=== PATIENT | female | born 1955 | race African-American/Black ===

== ENCOUNTER → 2016-02-17 | Outpatient (CLI) | payer MEDICARE, OTHER ==
[~2016-02-17] VITALS: Ht 160 cm; Wt 134.7 kg
[~2016-02-17] MED LIST: AMIO200T2 PO; AMIT50TA PO; ASPI81TA9 PO; ATOR40TA59 PO; CALC200T3 PO; CEFAZOLIN 1GM IVPB FOR OMNI 50 ML IV ONE; CHOL2000 PO; CINA30TA PO; FENTANYL PF 250 MCG/5 ML VIAL. IV ONE; FENTANYL PF 250 MCG/5 ML VIAL. ONE; FERR-26 PO; FERR325T31 PO; FOLI0.8T3 PO; HEPARIN for IV BOLUS 10,000 UNIT/10 ML VIAL. ONE; INSU100I17 SQ; INSU100I18 SQ; INSU100I27 SQ; IODIXANOL 320 MG/ML 100 ML VIAL. IART ONE; IODIXANOL 320 MG/ML 100 ML VIAL. ONE; IOHEXOL 300 MG/ML 100ML VIAL. ONE; LANT1000 PO; LEVO75TA PO; LEVO75TA5 PO; LIDOCAINE 1%/EPI 1:100,000 20 ML VIAL. IJ ONE; LIDOCAINE 1%/EPI 1:100,000 20 ML VIAL. ONE; LUBI8CAP3 PO; METAMUCIL425 GM PO; MIDAZOLAM HCL/PF 5 MG/5 ML VIAL IV ONE; MIDAZOLAM HCL/PF 5 MG/5 ML VIAL ONE; MUPI1OIN NS; SENN-6 PO; SENN1TAB19 PO; SEVE800T9 PO; TRAM50TA PO; WARF10TA PO
[2016-02-17 07:13] LABS: BASO # 0.1 x10^3/uL (0.0-0.2); BASO % 1 % (0-3); EOS % 4 % (0-3); HEMATOCRIT 34.7 % (36.0-47.0); HEMOGLOBIN 10.9 g/dL (12.0-15.5); LYMPH # 0.7 x10^3/uL (1.0-4.8); LYMPH % 10 % (24-48); MEAN CORPUSCULAR HEMOGLOBIN 30 pg (25-35); MEAN CORPUSCULAR HGB CONC 32 g/dL (31-37); MEAN CORPUSCULAR VOLUME 96 fL (79-100); MONO % 8 % (0-9); NEUT % 77 % (31-73); PLATELET COUNT 183 x10^3/uL (140-400); RED BLOOD COUNT 3.63 x10^6/uL (3.50-5.40); RED CELL DISTRIBUTION WIDTH 15.1 % (11.5-14.5); WHITE BLOOD COUNT 6.8 x10^3/uL (4.0-11.0)
[2016-02-17 07:17] VITALS: BP 123/49
[2016-02-17 07:19] LABS: PROTHROMBIN TIME PATIENT 12.6 SEC (11.7-14.0)
[2016-02-17 07:59] LABS: % BASOS 1 % (0-3); % EOS 4 % (0-5); PLT ESTIMATE ADEQUATE (ADEQUATE)
[2016-02-17 09:53] VITALS: BP 130/58
--- NOTE | 2016-02-17 10:10 | PDOC ---
MODERATE SEDATION ASSESSMENT RISKS/ALTERNATIVES Risks/Alternatives Risks and alternatives of this type of sedation and procedure discussed with: RISK/ALTERNATIVES: Patient H & P ON CHART H & P H & P on chart and reviewed for co-morbid conditions and appropriate labs. H&P ON CHART: Yes STATUS PREG STATUS ASSESSED: Yes MEDS/ALLERGIES REVIEWED Meds/Allergies Reviewed Medications and Allergies including time and route of recently administered narcotics and sedatives. MEDS/ALLERGIES REVIEWED: Yes ASA RATING ASA RATING: III AIRWAY ASSESSMENT Airway Assessment Airway patency, oral function limitations, presence of caps, crowns, dentures, partials, and ability to extend neck assessed. AIRWAY ASSESSMENT: Yes MALLAMPATI SCORE MALLAMPATI SCORE: III PRE-SEDATION ASSESSMENT PRE-SEDATION ASSESSMENT: Yes DAKOTA YOUSIF MD Feb 17, 2016 10:10
[2016-02-17 10:15] VITALS: BP 149/46
--- NOTE | 2016-02-17 10:19 | PDOC1 ---
History and Physical Date of Procedure Date of Admission 02/17/16 Procedure Procedure Fluoro guided tunneled HDC replacement--same left IJ access. Lt arm AVF gram +/- intervention. Indication Indication ESRD. Nonfunctioning left IJ tunneled HDC. Inability to access left arm AVF. Past Medical History Past Medical History See Nursing Pre Procedure PMH Past Surgical History Past Surgical History See Nursing Pre procedure PSH Current Medications Current Medications Current Medications Heparin Sodium (Porcine) 10,000 unit STK-MED ONCE .ROUTE ; Start 02/17/16 at 08: 02; Stop 02/17/16 at 08:03; Status DC Iohexol (Omnipaque 300 Mg/ml) 100 ml STK-MED ONCE .ROUTE ; Start 02/17/16 at 08: 02; Stop 02/17/16 at 08:03; Status DC Lidocaine/ Epinephrine 20 ml 20 ml STK-MED ONCE .ROUTE ; Start 02/17/16 at 08:03 ; Stop 02/17/16 at 08:04; Status DC Heparin Sodium/ Sodium Chloride 500 ml @ As Directed STK-MED ONCE .ROUTE ; Start 02/17/16 at 08:03; Stop 02/17/16 at 08:04; Status DC Iodixanol (Visipaque 320) 100 ml STK-MED ONCE .ROUTE ; Start 02/17/16 at 08:15; Stop 02/17/16 at 08:16; Status DC Heparin Sodium (Porcine) 10,000 unit STK-MED ONCE .ROUTE ; Start 02/17/16 at 08: 16; Stop 02/17/16 at 08:17; Status DC Midazolam HCl (Versed) 5 mg STK-MED ONCE .ROUTE ; Start 02/17/16 at 08:16; Stop 02/17/16 at 08:17; Status DC Fentanyl Citrate 250 mcg 250 mcg STK-MED ONCE .ROUTE ; Start 02/17/16 at 08:16; Stop 02/17/16 at 08:17; Status DC Cefazolin Sodium (Ancef 1gm Ivpb For Omni) 50 ml @ As Directed STK-MED ONCE IV ; Start 02/17/16 at 08:16; Stop 02/17/16 at 08:17; Status DC Heparin Sodium/ Sodium Chloride 1,000 unit 1X ONCE IART Last administered on t 09:50; Start 02/17/16 at 08:45; Stop 02/17/16 at 08:48; Status DC Midazolam HCl (Versed) 5 mg 1X ONCE IV Last administered on 02/17/16 09:52; Start 02/17/16 at 08:45; Stop 02/17/16 at 08:48; Status DC Fentanyl Citrate (Fentanyl 5ml Vial) 250 mcg 1X ONCE IV Last administered on 09:51; Start 02/17/16 at 08:45; Stop 02/17/16 at 08:48; Status DC Iodixanol (Visipaque 320) 100 ml 1X ONCE IART Last administered on 02/17/16 09 :50; Start 02/17/16 at 08:45; Stop 02/17/16 at 08:48; Status DC Lidocaine/ Epinephrine 20 ml 20 ml 1X ONCE IJ Last administered on 02/17/16 09 :50; Start 02/17/16 at 08:45; Stop 02/17/16 at 08:48; Status DC Cefazolin Sodium (Ancef 1gm Ivpb For Omni) 50 ml @ 0 mls/hr 1X ONCE IV Last administered on 02/17/16 09:00; Start 02/17/16 at 09:00; Stop 02/17/16 at 09:01; Status DC Heparin Sodium (Porcine) 5,200 unit 1X ONCE INT CAT ; Start 02/17/16 at 10:00; Stop 02/17/16 at 10:01; Status DC Active Scripts Active Amitiza (Lubiprostone) 8 Mcg Capsule 24 Mcg PO BIDWMEALS Tramadol Hcl 50 Mg Tablet 50 Mg PO PRN Q6HRS PRN Levemir Flextouch (Insulin Detemir) 100 Unit/1 Ml Insuln.pen 30 Units SQ DAILY Novolog Flexpen (Insulin Aspart) 100 Unit/1 Ml Insuln.pen 12 Units SQ TIDWMEALS Reported Ferrous Sulfate 325 Mg Tablet 325 Mg PO DAILY Sensipar (Cinacalcet Hcl) 30 Mg Tablet 30 Mg PO DAILY Aspirin Ec (Aspirin) 81 Mg Tablet.dr 81 Mg PO DAILY Atorvastatin Calcium 40 Mg Tablet 40 Mg PO HS Amiodarone Hcl 200 Mg Tablet 1 Tab PO DAILY Vitamin D (Cholecalciferol (Vitamin D3)) 2,000 Unit Capsule 1 Cap PO DAILY Levothyroxine Sodium 75 Mcg Tablet 1 Tab PO DAILY Dok Plus Tablet (Sennosides/Docusate Sodium) 1 Each Tablet 2 Each PO BID Tums (Calcium Carbonate) 200 Mg Tab.chew 500 Mg PO DAILY Renvela (Sevelamer Carbonate) 800 Mg Tablet 3,200 Mg PO TIDWMEALS Amitriptyline Hcl 50 Mg Tablet 50 Mg PO HS Nephro-Migdalia Tablet (Folic Acid/Vitamin B Comp W-C) 0.8 Mg Tablet 0.8 Mg PO DAILY Allergies Allergies: Coded Allergies: I S O L A T I O N *CONTACT* (Verified Allergy, Unknown, 10/07/15) mrsa screen + No Known Medication Allergies (Verified Allergy, Unknown, 10/07/15) Physical Exam Vital Signs Vital Signs Date Time Temp Pulse Resp B/P Pulse Ox O2 Delivery O2 Flow Rate FiO2 02/17/16 09:53 94 16 99 Nasal Cannula 2.0 02/17/16 07:17 97.7 123/49 97.7 Lungs: Clear to auscultation Heart: Regular rate Psych/Mental Status: Mental status NL Other Nonfunctioning left IJ tunneled HDC in place. Palpable thrill within patent left arm AVF. Diagnostic Data/Imaging Images Images from innumerable HDC exchanges reviewed. Assessment Assessment ESRD. Nonfunctioning left IJ tunneled HDC, s/p multiple frequent HDC exchanges. Patent left arm AVF---however HD center unable to successfully access AVF. Problems: Plan Plan Repeat fluoro guided left IJ tunneled HDC exchange-----Due to multiple HDC failures, will extend HDC tip to reside in IVC to hopefully prolong patency. Left arm AVF gram +/- intervention. DAKOTA YOUSIF MD Feb 17, 2016 10:19
[2016-02-17 10:30] VITALS: BP 129/47
--- NOTE | 2016-02-17 10:33 | PDOC ---
Exam Supervisor Cutting Department Supervisor Cutting Department Hayder Survey Worker Survey Worker Heavenly Fuchs Pre-Procedure Diagnosis Pre-Procedure Diagnosis ESRD. Nonfunctioning left IJ tunneled HDC, s/p multiple frequent HDC exchanges. Patent left arm brachiobasilic AVF with transposition, performed 10/07/15. This fistula is patent, but cannot be successfully accessed at HD center. Post-Procedure Diagnosis Post-Procedure Diagnosis ESRD. Nonfunctioning left IJ tunneled HDC confirmed. Patent left arm AVF, with juxta-anastomotic stenosis. Procedure Performed Procedure Performed Repeat fluoro guided tunneled HDC exchange thru same left IJ access and same subQ tunnel. Due to multiple prior HDC failures, tip of new HDC was extended to reside within IVC, in hope of prolonging patency. Sono guided Left arm AVF gram, with DCB BOBBIN DISKER basilic vein juxta-anastomotic stricture. Type of Anesthesia Type of Anesthesia Local + Mod sedation. Estimated Blood Loss EBL: 25 cc Specimens Specimans Nonfunctioning 14.5F 27cm Merit left IJ tunneled HDC removed and discarded. Drain/Tubes Drains/Tubes New left IJ 14.5F 44cm Palindrome tunneled HDC inserted, with tip within mid-IVC Condition of Patient Condition of Patient Stable. No apparent complication. Disposition Disposition Home from [facility] post recovery, if no problems. F/u with Renal and Vascular surgery. OK to use new HDC. OK to attempt to use left arm AVF. Full report to follow. DAKOTA YOUSIF MD Feb 17, 2016 10:33
--- NOTE | 2016-02-17 14:18 | RAD ---
Left upper arm AV fistulogram DCB REAMING MACHINE OPERATOR juxta anastomotic basilic vein stricture Fluoroscopy guided replacement of left IJ tunneled hemodialysis catheter, through same venous access Indication: 60-year-old female with end stage renal disease. Her left upper arm brachiobasilic AV fistula, with transposition, cannot be successfully accessed at the hemodialysis center. Her indwelling, frequently replaced, left IJ tunneled hemodialysis catheter is nonfunctioning. Evaluation of left upper arm AV fistula with possible intervention and repeat replacement of left IJ tunneled hemodialysis catheter has been requested by nephrology. Fluoroscopy time: 15.1 minutes Kerma-area Product: 127 Gycm2 Antibiotic: A single dose of Ancef was administered within 1 hour of the procedure start time. Contrast material: 80 cc Visipaque 320 Anesthesia: 78 minutes moderate sedation was provided utilizing a total of 2.5 mg Versed and 100 mcg fentanyl, IV. The patient was appropriately monitored by a qualified independent observer throughout the time of moderate sedation. Sterility: All elements of maximal sterile barrier technique, including the use of a cap, mask, sterile gown, sterile gloves, large sterile sheet, appropriate hand hygiene, and 2% chlorhexidine for cutaneous antisepsis (or acceptable alternative antiseptic per current guidelines) were utilized. Procedure: Informed consent was obtained from the patient. She was placed supine on the angiography table. Left upper arm, left chest, and left neck were prepped and draped in the usual sterile fashion, utilizing all elements of maximal sterile barrier technique, as described above. Moderate sedation was provided with IV Versed and fentanyl. 1 g Ancef was given IV, prophylactically. Left brachiobasilic AV fistulogram: Preliminary ultrasound examination documented patency of left upper arm brachiobasilic AV fistula, as well as a focal moderate to high-grade stenosis within basilic outflow vein at the level of distal humerus. A site suitable for AV fistula sheath placement was selected, was marked, and was documented with a single hard copy ultrasound image. Using aseptic technique, local anesthesia, direct ultrasound guidance, and the micropuncture system, a 4 Welsh sheath was successfully introduced into the AV fistula at the level of mid humerus, with its tip directed peripherally. Several hand injections of Visipaque 320 were performed and AV fistulogram DSA images were obtained from arterial limb through right atrium. Findings: The brachial artery-transposed basilic vein anastomosis was not well demonstrated. A focal, smooth stenosis on the order of 70%, lies within basilic outflow vein, approximate 4 cm above the AV anastomosis. The transposed basilic vein is otherwise widely patent and unremarkable. There is prompt contrast opacification of a widely patent venous structure extending from mid humerus through axillary vein, which could represent either duplicated basilic vein or contrast opacified brachial vein. Left axillary vein and subclavian vein are widely patent. There appears to be moderate narrowing at medial aspect of left innominate vein, which is traversed by the patient's indwelling, nonfunctioning left IJ tunneled hemodialysis catheter. Superior vena cava appears widely patent. DCB REAMING MACHINE OPERATOR basilic outflow vein: Following the diagnostic AV fistulogram, the 4 Welsh AV fistula sheath was exchanged over a guidewire for a short 6 Welsh sheath. A 6 mm x 20 mm Cordis extreme REAMING MACHINE OPERATOR balloon was advanced through the 6 Welsh sheath over a stiff Glidewire, and was utilized to perform balloon dilatation of the focal basilic vein stricture. Peak pressure of 22 farooq for 8 minutes. This 6 mm extreme REAMING MACHINE OPERATOR balloon was then exchanged for a 6 mm x 40 mm conquest REAMING MACHINE OPERATOR balloon, which was utilized to perform further balloon dilatation of the lesion to a peak pressure of 30 farooq for 40 minutes. The conquest REAMING MACHINE OPERATOR balloon was then exchanged over the stiff Glidewire for a 6 mm x 40 mm Gnu[employer]tronic's paclitaxel-coated balloon, which was inflated across the lesion to a peak pressure of 14 farooq for 3 minutes. The drug coated balloon was then deflated and removed. Visipaque 320 was injected through the 6 Welsh sheath and completion DSA images were obtained, which revealed only minimal residual basilic vein narrowing, without complicating dissection, thrombosis, or vessel perforation. Patient tolerated the procedure well without apparent cortication. The 6 Welsh AV fistula sheath was removed and hemostasis was achieved utilizing 2-0 silk in a pursestring fashion. Fluoroscopy guided complete replacement of left IJ tunneled hemodialysis catheter, through same venous access, and same subcutaneous tunnel: Following left upper arm AV fistulogram with intervention, attention was turned to the nonfunctioning left IJ tunneled hemodialysis catheter. Using aseptic technique and local anesthesia, retention cuff of the tunneled dialysis catheter was freed from surrounding soft tissues utilizing a small mosquito hemostats introduced through the pre-existing chest wall exit site. The 14.5 Welsh 27 cm merit tunneled hemodialysis catheter was then exchanged over a stiff Glidewire for an 8 Welsh 35 cm long sheath, which was easily advanced into right atrium. A 5 Welsh MP catheter was then inserted through the 8 Welsh sheath and was successfully advanced from right atrium into lower inferior vena cava over the stiff Glidewire. The 8 Welsh sheath was then advanced over the MP catheter/stiff Glidewire combination into inferior vena cava. The MP catheter was then removed over the stiff Glidewire, which was left in place with its tip within inferior vena cava. An additional stiff Glidewire was then coaxially inserted through the 8 Welsh sheath into inferior vena cava. The 8 Welsh sheath was then removed over the 2 stiff Glidewires. Since the patient has had multiple, frequent hemodialysis catheter exchanges, the decision was made to introduce a longer dialysis catheter, placing its tip within inferior vena cava, in hopes of providing durable catheter function. Utilizing fluoroscopic guidance, a 14.5 Welsh 44 cm palindrome dialysis catheter was then easily advanced over the 2 stiff Glidewires, through the pre-existing subcutaneous tunnel and previous left IJ venostomy tract, across left upper extremity central veins and right atrium, into mid inferior vena cava. Visipaque 320 was then injected through the dialysis catheter, and DSA images were obtained, which revealed wide patency of inferior vena cava, with brisk antegrade flow from inferior vena cava into right atrium. The catheter was then demonstrated to flush and aspirate normally, was packed, and was secured at the left chest exit site utilizing suture and sterile dressing. Patient tolerated the procedure well without apparent complication. Satisfactory course of the new, long palindrome tunneled dialysis catheter was documented with 2 additional fluoroscopic spot images. Impression: 1. Successful, uneventful ultrasound-guided left upper arm transposed brachiobasilic AV fistulogram, with paclitaxel-coated balloon angioplasty of focal basilic outflow vein stricture, as described. 2. Successful, uneventful fluoroscopy guided complete replacement of tunneled hemodialysis catheter, through pre-existing left chest subcutaneous tunnel and pre-existing left IJ venostomy tract, as described. Since the patient has required multiple, frequent tunneled dialysis catheter exchanges, the decision was made to introduce a long 14.5 Welsh 44 cm palindrome dialysis catheter, advancing its tip into mid inferior vena cava. Hopefully, this will result in more durable catheter function.
== END | disposition home or self-care (01) ==
LOC: INTRAD 06:32
PROVIDERS: ATTEND Family Medicine
DX: T82.858A Stenosis of other vascular prosthetic devices, implants and grafts, initial encounter (principal); I10 Essential (primary) hypertension; E78.00 Pure hypercholesterolemia, unspecified; E66.9 Obesity, unspecified; E03.9 Hypothyroidism, unspecified; E11.9 Type 2 diabetes mellitus without complications; Y83.2 Surgical operation with anastomosis, bypass or graft as the cause of abnormal reaction of the patient, or of later complication, without mention of misadventure at the time of the procedure; Y92.9 Unspecified place or not applicable; Z87.39 Personal history of other diseases of the musculoskeletal system and connective tissue; Z79.01 Long term (current) use of anticoagulants
CPT/HCPCS: 36415; 36581; 36902; 76937; 77001; 85007; 85027; 85610; C1750; C1758; C1769; C1892; C1894; C2623; J0690; J2250; J3010; J3490; 35476; 36147

== ENCOUNTER 2016-03-28 09:52 | Day surgery (SDC) | payer MEDICARE, OTHER ==
[~2016-03-28 09:52] MED LIST changes: -CEFAZOLIN 1GM IVPB FOR OMNI 50 ML IV ONE; +CEFAZOLIN SODIUM IO ONE; +CIPROFLOXACIN 0.3% OPHTH SOLUTION 2.5ML BOTTLE. OS ONE; +EPINEPHRINE IO ONE; +FENTANYL PF 100 MCG/2 ML VIAL. IV PRN; -FENTANYL PF 250 MCG/5 ML VIAL. IV ONE; -FENTANYL PF 250 MCG/5 ML VIAL. ONE; +GENTAMICIN SULFATE IO ONE; -HEPARIN for IV BOLUS 10,000 UNIT/10 ML VIAL. ONE; +HYDROMORPHONE 2 MG/ML VIAL. IV PRN; -IODIXANOL 320 MG/ML 100 ML VIAL. IART ONE; -IODIXANOL 320 MG/ML 100 ML VIAL. ONE; -IOHEXOL 300 MG/ML 100ML VIAL. ONE; +IV RINGERS,LACTATED 1000ML 1,000 ML IV SCH; +LIDOCAINE 1% 1 ML SYRINGE. ID PRN; -LIDOCAINE 1%/EPI 1:100,000 20 ML VIAL. IJ ONE; -LIDOCAINE 1%/EPI 1:100,000 20 ML VIAL. ONE; +LIDOCAINE 2% JELLY 6ML IN APPLICATOR. MM PRN; -MIDAZOLAM HCL/PF 5 MG/5 ML VIAL IV ONE; -MIDAZOLAM HCL/PF 5 MG/5 ML VIAL ONE; +MORPHINE SULFATE 2 MG/ML DISP.SYRIN. IV PRN; +ONDANSETRON PF 4 MG/2 ML VIAL. IV PRN; +PROCHLORPERAZINE 10 MG/2 ML VIAL. IV PRN; +PROPARACAINE 0.5% OPHTH SOLUTION 15ML BOTTLE. OS ONE; +[UNRECOGNIZED DRUG - OTHER] IO ONE
[2016-03-28] MEDS ORDERED: NEO/POLYMYX/DEXAMETH OPHTH OINTMENT 3.5GM TUBE. ONE (09:54)
[2016-03-28] MEDS ORDERED: LIDOCAINE 1% PF 2 ML VIAL. ONE (09:54)
[2016-03-28] MEDS ORDERED: BALANCED SALT IRRIG OPHTH SOLN 15 ML BOTTLE. ONE (09:55)
[2016-03-28] MEDS ORDERED: CHONDROITIN-SOD-HYALURONATE 0.5 ML DISP.SYRIN. ONE ×2 (09:55→10:38)
[2016-03-28] MEDS ORDERED: CHONDROIT-SOD-HYALURONATE KIT. ONE (09:55)
[2016-03-28] MEDS ORDERED: IV NORMAL SALINE 1000ML BAG 1,000 ML IV ONE (11:00)
[2016-03-28] MEDS: PHENYLEPHRINE 10% OPHTH SOLUTION 5ML BOTTLE. OS SCH ×3 (11:09→11:23)
[2016-03-28] MEDS: CYCLOPENTOLATE 1% OPTH SOLUTION 2ML BOTTLE. OS SCH ×3 (11:11→11:23)
[2016-03-28] MEDS ORDERED: DEXTROSE 50% 25 GM / 50ML DISP.SYRIN. IV ONE ×2 (11:15→12:15)
[2016-03-28] MEDS ORDERED: MIDAZOLAM HCL 2 MG/2 ML VIAL. ONE (12:49)
[2016-03-28 14:00] VITALS: BP 124/75
--- NOTE | 2016-03-29 05:39 | OP ---
DATE OF SURGERY: 03/28/2016 PREOPERATIVE DIAGNOSIS: Cataract of the left eye. PROCEDURE: Phacoemulsification with posterior chamber intraocular lens implant of the left eye. INDICATION: Painless progressive visual loss with visually significant cataract and obstruction of a clear view to the fundus in a diabetic. DESCRIPTION OF PROCEDURE: The patient was prepped preoperatively with Betadine in the usual sterile fashion and draped. A paracentesis was performed followed by instillation of 1% preservative-free lidocaine. Viscoelastic was injected in the anterior chamber and a temporal clear corneal incision was made. A capsulorrhexis was performed followed by hydrodissection and partial prolapse of the nucleus at the pupillary plane. Viscoelastic was placed both anterior and posterior to the lens and evacuated with the phacoemulsification handpiece. The I/A handpiece was used to remove the cortex. Viscoelastic was injected in the anterior chamber. An Herrera, model [id number] with a power of 19.5 diopters was placed into the capsular bag. Balanced salt solution was used to hydrate the corneal wounds and the viscoelastic evacuated with the I/A handpiece. Once no leak was noted, Maxitrol was placed on the eye and the eye shielded and the patient sent to the recovery room uneventfully. GLADIS EARL MD DR: CHONG/yenny JOB#: [id number] / [id number]
== END 2016-03-28 14:17 | disposition home or self-care (01) ==
LOC: SURG 09:52
PROVIDERS: ATTEND Ophthalmology
DX: E11.36 Type 2 diabetes mellitus with diabetic cataract (principal); E78.00 Pure hypercholesterolemia, unspecified; I10 Essential (primary) hypertension; E66.9 Obesity, unspecified; D64.9 Anemia, unspecified; E03.9 Hypothyroidism, unspecified; Z98.51 Tubal ligation status
CPT/HCPCS: 66984; 82947; C1780; J0171; J0690; J1580; J2250; J7042

== ENCOUNTER 2016-04-11 09:37 | Day surgery (SDC) | payer MEDICARE, OTHER ==
[~2016-04-11] VITALS: Ht 160 cm; Wt 127.0 kg
[~2016-04-11 09:37] MED LIST changes: +CIPROFLOXACIN 0.3% OPHTH SOLUTION 2.5ML BOTTLE. OD ONE; -CIPROFLOXACIN 0.3% OPHTH SOLUTION 2.5ML BOTTLE. OS ONE; +IV NORMAL SALINE 1000ML BAG 1,000 ML IV SCH; -IV RINGERS,LACTATED 1000ML 1,000 ML IV SCH; +PROPARACAINE 0.5% OPHTH SOLUTION 15ML BOTTLE. OD ONE; -PROPARACAINE 0.5% OPHTH SOLUTION 15ML BOTTLE. OS ONE
[2016-04-11] MEDS: PHENYLEPHRINE 10% OPHTH SOLUTION 5ML BOTTLE. OD SCH ×3 (10:14→10:31)
[2016-04-11] MEDS: CYCLOPENTOLATE 1% OPTH SOLUTION 2ML BOTTLE. OD SCH ×3 (10:14→10:31)
[2016-04-11] MEDS ORDERED: LIDOCAINE 1% PF 2 ML VIAL. ONE (11:05)
[2016-04-11] MEDS ORDERED: NEO/POLYMYX/DEXAMETH OPHTH OINTMENT 3.5GM TUBE. ONE (11:05)
[2016-04-11] MEDS ORDERED: BALANCED SALT IRRIG OPHTH SOLN 15 ML BOTTLE. ONE (11:05)
[2016-04-11] MEDS ORDERED: CHONDROITIN-SOD-HYALURONATE 0.5 ML DISP.SYRIN. ONE (11:06)
[2016-04-11] MEDS ORDERED: CHONDROIT-SOD-HYALURONATE KIT. ONE (11:06)
[2016-04-11] MEDS ORDERED: MIDAZOLAM HCL 2 MG/2 ML VIAL. ONE (12:08)
[2016-04-11 12:58] VITALS: BP 116/53
--- NOTE | 2016-04-11 13:48 | OP ---
DATE OF SURGERY: 04/11/2016 PREOPERATIVE DIAGNOSIS: Cataract of the right eye. PROCEDURE: Phacoemulsification with posterior chamber intraocular lens implantation of the right eye. INDICATION: Painless progressive visual loss and visually significant cataract and difficulty reading. DESCRIPTION OF PROCEDURE: The right eye was prepped with Betadine in the usual sterile fashion and draped. A 1% preservative-free lidocaine was placed through paracentesis followed by viscoelastic. A temporal clear corneal incision was made followed by a capsulorrhexis and hydrodissection. The lens was prolapsed at the pupillary plane and sandwiched with viscoelastic anterior and posterior to the lens. The phacoemulsification handpiece was used to remove the nucleus and the I/A handpiece was used to remove the cortex. Viscoelastic was injected in the capsular bag and an Herrera, model [id number] with a power of 19.5 diopters was placed into the capsular bag. Balanced salt solution was used to hydrate the corneal wounds and the viscoelastic evacuated with the I/A handpiece. Once no leak was noted, Maxitrol was placed on the eye and the eye shielded and the patient sent to the recovery room uneventfully. GLADIS EARL MD DR: CHONG/yenny JOB#: [id number] / [id number]
== END 2016-04-11 13:30 | disposition home or self-care (01) ==
LOC: SURG 09:37
PROVIDERS: ATTEND Ophthalmology
DX: E11.36 Type 2 diabetes mellitus with diabetic cataract (principal); H54.7 Unspecified visual loss; E03.9 Hypothyroidism, unspecified; E78.00 Pure hypercholesterolemia, unspecified; D64.9 Anemia, unspecified; E66.9 Obesity, unspecified; Z87.39 Personal history of other diseases of the musculoskeletal system and connective tissue; Z98.42 Cataract extraction status, left eye; Z98.51 Tubal ligation status
CPT/HCPCS: 66984; 82947; C1780; J0171; J0690; J1580; J2250

== ENCOUNTER 2016-05-11 09:18 | Day surgery (SDC) | payer MEDICARE, OTHER ==
[~2016-05-11] VITALS: Ht 160 cm; Wt 127.0 kg
[~2016-05-11 09:18] MED LIST changes: +CEFAZOLIN 1GM IVPB FOR OMNI 50 ML IV PRN; +CEFAZOLIN SODIUM 1 GM in IV NORMAL SALINE 500ML BAG 500 ML IRR ONE; -CEFAZOLIN SODIUM IO ONE; -CIPROFLOXACIN 0.3% OPHTH SOLUTION 2.5ML BOTTLE. OD ONE; -EPINEPHRINE IO ONE; -GENTAMICIN SULFATE IO ONE; +HEPARIN S0DIUM 5,000 UNIT in IV NORMAL SALINE 500ML BAG 500 ML IRR ONE; -LIDOCAINE 2% JELLY 6ML IN APPLICATOR. MM PRN; -PROPARACAINE 0.5% OPHTH SOLUTION 15ML BOTTLE. OD ONE; -[UNRECOGNIZED DRUG - OTHER] IO ONE
[2016-05-11 10:19] LABS: CALCIUM 9.9 mg/dL (8.5-10.1); CREATININE 6.9 mg/dL (0.6-1.0); GFR 7.3; POTASSIUM 4.3 mmol/L (3.5-5.1)
[2016-05-11 10:20] LABS: BASO # 0.1 x10^3/uL (0.0-0.2); BASO % 1 % (0-3); EOS % 2 % (0-3); HEMATOCRIT 37.8 % (36.0-47.0); HEMOGLOBIN 12.2 g/dL (12.0-15.5); LYMPH # 0.9 x10^3/uL (1.0-4.8); LYMPH % 14 % (24-48); MEAN CORPUSCULAR HEMOGLOBIN 31 pg (25-35); MEAN CORPUSCULAR HGB CONC 32 g/dL (31-37); MEAN CORPUSCULAR VOLUME 95 fL (79-100); MONO % 10 % (0-9); NEUT % 73 % (31-73); PLATELET COUNT 194 x10^3/uL (140-400); RED BLOOD COUNT 3.97 x10^6/uL (3.50-5.40); RED CELL DISTRIBUTION WIDTH 15.4 % (11.5-14.5); WHITE BLOOD COUNT 6.3 x10^3/uL (4.0-11.0)
[2016-05-11 10:43] LABS: PROTHROMBIN TIME PATIENT 12.5 SEC (11.7-14.0)
[2016-05-11] MEDS ORDERED: SURGICEL FIBRILLAR 1X2 EACH. ONE (12:50)
[2016-05-11] MEDS ORDERED: LIDOCAINE 1% 20 ML VIAL. ONE (12:50)
[2016-05-11] MEDS ORDERED: PROTAMINE 50 MG/5 ML VIAL. IV ONE (12:50)
[2016-05-11] MEDS ORDERED: PAPAVERINE 60 MG/2 ML VIAL FOR OR ONLY. ONE (12:50)
[2016-05-11] MEDS ORDERED: THROMBIN 20,000 UNIT SPRAY.SYRN KIT TP ONE (12:50)
[2016-05-11] MEDS ORDERED: POVIDONE-IODINE 10% TOPICAL OINTMENT 28GM TUBE. TP ONE (12:50)
[2016-05-11] MEDS ORDERED: PROPOFOL 20 ML IV ONE ×2 (13:08→14:12)
[2016-05-11] MEDS ORDERED: ONDANSETRON PF 4 MG/2 ML VIAL. ONE (13:08)
[2016-05-11] MEDS ORDERED: FAMOTIDINE 20 MG/2 ML VIAL ONE (13:08)
[2016-05-11] MEDS ORDERED: DEXAMETHASONE SOD PHOS 20 MG/5 ML VIAL. ONE (13:08)
[2016-05-11] MEDS ORDERED: LIDOCAINE 2% 100 MG/5 ML DISP.SYRIN. ONE (13:08)
[2016-05-11] MEDS ORDERED: FENTANYL PF 100 MCG/2 ML VIAL. ONE (13:09)
[2016-05-11] MEDS ORDERED: ROCURONIUM 50 MG/5 ML VIAL. ONE (13:09)
--- NOTE | 2016-05-11 13:09 | DISCH ---
DISCHARGE INSTRUCTIONS Condition on Discharge Condition on Discharge: Stable Activity After Discharge Activity Instructions for Disc: Activity as tolerated Bathing Instructions: Shower-keep dressing dry (may remove dressing in 2 days then may shower) Diet after Discharge Diet after Discharge: Renal Dialysis Wound Incision Care Wound/Incision Care: Ice to area for comfort, Keep wound elevated Contacting the DRLeatha after DC Call your doctor for: If your condition worsens Follow-Up Follow up with: Dr. Mustafa 05/23/16 9:10 JESSICA POPE APRN May 11, 2016 13:09
[2016-05-11] MEDS ORDERED: PHENYLEPHRINE in 0.9% NACL PF 1 MG/10 ML DISP.SYRIN. IV ONE ×2 (13:28→14:18)
[2016-05-11] MEDS ORDERED: HEPARIN for IV BOLUS 10,000 UNIT/10 ML VIAL. ONE (14:16)
[2016-05-11] MEDS ORDERED: NEOSTIGMINE METHYLSULFATE 5 MG/5 ML SYRINGE. ONE (15:00)
[2016-05-11] MEDS ORDERED: GLYCOPYRROLATE 1 MG/5 ML VIAL. ONE (15:00)
[2016-05-11] MEDS ORDERED: DESFLURANE > 120 MINUTES IH ONE (15:11)
--- NOTE | 2016-05-11 15:24 | PDOC ---
BRIEF OPERATIVE NOTE Date: May 11, 2016 Pre-Op Diagnosis ESRD Post-Op Diagnosis same Procedure Performed Left upper arm arterio-venous shunt placement Surgeon Dr. Mustafa Chief Mechanical Engineer Jessica Pope Anesthesia Type: General Blood Loss 20cc Specimens Obtained none Findings good thrill in graft Complications none, stable to PACU JESSICA POPE APRN May 11, 2016 15:24
[2016-05-11 16:25] VITALS: BP 125/49
--- NOTE | 2016-05-11 20:44 | OP ---
DATE OF SURGERY: 05/11/2016 PREOPERATIVE DIAGNOSIS: End-stage renal disease with inadequate dialysis access. POSTOPERATIVE DIAGNOSIS: End-stage renal disease with inadequate dialysis access. OPERATION PERFORMED: Ligation of previously placed left brachiobasilic AV fistula with conversion to brachial artery to proximal brachial vein arteriovenous graft. SURGEON: Nereida Mustafa M.D. OCCUPATIONAL THERAPIST REHAB MANAGER: JOSE Rivera. ANESTHESIA: General. INDICATIONS: The patient is a 60-year-old female who had a left upper arm brachiobasilic AV fistula placed followed by transposition. She is an obese woman with large arm and they have been unable to access the fistula on a consistent basis. For this reason, this will be converted to an AV graft. The operation risks and benefits were explained. OPERATIVE FINDINGS: The flow from the distal basilic vein anastomosed to the brachial artery was adequate. The tapered portion of the ____ graft was sutured into this after division and ligation of the proximal end. There is a lateral arterial flow through the graft, which was then anastomosed to the deep brachial vein in the axilla. Following the procedure, the patient had a nonpulsatile thrill over the graft. DESCRIPTION OF PROCEDURE: Left upper arm was prepped and draped circumferentially. The patient received 1 g of IV Ancef. An incision was made over the palpable basilic arterialized vein and it was dissected and encircled with a vessel loop. Next, a longitudinal incision was made in the axilla and the deep brachial vein was dissected and encircled proximally and distally with vessel loops as was the basilic vein entering it. The patient was then given 3000 units of heparin, a tunnel was placed in a semicircular fashion subcutaneously and a ____ tapered graft was placed within that tunnel. The small end of the graft was then sutured, end-to-end, spatulated technique with HS7 Prolene suture. After completing that anastomosis, there was pulsatile flow through the graft, which was irrigated retrograde with heparinized saline and clamped. The deep brachial vein was then incised longitudinally and the large end of the synthetic graft was sutured end-to-side using HS7 Prolene. Prior to completing the anastomosis, the graft was flushed and then the anastomosis was completed. There was good flow through the graft, which was nonpulsatile. The wounds were then irrigated and closed with absorbable suture, the skin with nylon. No protamine was given. All sponge, needle counts were reported as correct. SPECIMENS: None. ESTIMATED BLOOD LOSS: 50 mL. NEREIDA MUSTAFA MD DR: SANJEEV/yenny JOB#: [id number] / [id number]
== END 2016-05-11 16:45 | disposition home or self-care (01) ==
LOC: SURG 09:18
PROVIDERS: ATTEND Surgery
DX: E11.22 Type 2 diabetes mellitus with diabetic chronic kidney disease (principal); I12.0 Hypertensive chronic kidney disease with stage 5 chronic kidney disease or end stage renal disease; N18.6 End stage renal disease; Z99.2 Dependence on renal dialysis; E78.00 Pure hypercholesterolemia, unspecified; E66.9 Obesity, unspecified; E03.9 Hypothyroidism, unspecified; Z86.14 Personal history of Methicillin resistant Staphylococcus aureus infection; Z98.51 Tubal ligation status
CPT/HCPCS: 36415; 36832; 37607; 80048; 82947; 85027; 85610; 85730; J0690; J1100; J2370; J2405; J2704; J2710; J3010; J3490; J7040; S0028; C1768; J2440

== ENCOUNTER → 2016-06-27 | Day surgery (SDC) | payer MEDICARE, OTHER ==
[~2016-06-27] MED LIST changes: -CEFAZOLIN 1GM IVPB FOR OMNI 50 ML IV PRN; -CEFAZOLIN SODIUM 1 GM in IV NORMAL SALINE 500ML BAG 500 ML IRR ONE; +DEXAMETHASONE SOD PHOS 20 MG/5 ML VIAL. ONE; +FAMOTIDINE 20 MG/2 ML VIAL ONE; -FENTANYL PF 100 MCG/2 ML VIAL. IV PRN; -HEPARIN S0DIUM 5,000 UNIT in IV NORMAL SALINE 500ML BAG 500 ML IRR ONE; +HEPARIN SODIUM 5,000 UNIT in IV NORMAL SALINE 500ML BAG 500 ML IRR ONE; +HYDR-971 PO; -HYDROMORPHONE 2 MG/ML VIAL. IV PRN; +HYDROmorphone 2 MG/ML VIAL IV PRN; +LIDOCAINE 1% PF 48 ML, SODIUM BICARBONATE VIAL 12 MEQ in TOTAL VOLUME SYRINGE 60 ML ID ONE; +LIDOCAINE 1% PF 5 ML VIAL. ONE; +ONDANSETRON PF 4 MG/2 ML VIAL. ONE; +PROPOFOL 0 ML IV ONE; +SURGICEL FIBRILLAR 1X2 EACH. ONE; -WARF10TA PO; +WARF10TA45 PO; +fentaNYL PF VIAL 100 MCG/2 ML VIAL IV PRN; +fentaNYL PF VIAL 100 MCG/2 ML VIAL ONE
[2016-06-27 08:24] VITALS: BP 142/60
[2016-06-27 08:54] LABS: BASO # 0.1 x10^3/uL (0.0-0.2); BASO % 1 % (0-3); EOS % 4 % (0-3); HEMATOCRIT 37.4 % (36.0-47.0); HEMOGLOBIN 12.2 g/dL (12.0-15.5); LYMPH # 0.8 x10^3/uL (1.0-4.8); LYMPH % 14 % (24-48); MEAN CORPUSCULAR HEMOGLOBIN 31 pg (25-35); MEAN CORPUSCULAR HGB CONC 33 g/dL (31-37); MEAN CORPUSCULAR VOLUME 96 fL (79-100); MONO % 7 % (0-9); NEUT % 75 % (31-73); PLATELET COUNT 204 x10^3/uL (140-400); RED BLOOD COUNT 3.91 x10^6/uL (3.50-5.40); RED CELL DISTRIBUTION WIDTH 15.4 % (11.5-14.5); WHITE BLOOD COUNT 6.1 x10^3/uL (4.0-11.0)
[2016-06-27 09:08] LABS: INR 0.9 (0.8-1.1); PROTHROMBIN TIME PATIENT 11.7 SEC (11.7-14.0)
[2016-06-27 09:17] LABS: CALCIUM 9.6 mg/dL (8.5-10.1); CREATININE 8.2 mg/dL (0.6-1.0); POTASSIUM 4.4 mmol/L (3.5-5.1)
== END | disposition home or self-care (01) ==
LOC: SURG 07:44
DX: E11.22 Type 2 diabetes mellitus with diabetic chronic kidney disease (principal); Z53.9 Procedure and treatment not carried out, unspecified reason; I12.0 Hypertensive chronic kidney disease with stage 5 chronic kidney disease or end stage renal disease; N18.6 End stage renal disease; Z99.2 Dependence on renal dialysis; E66.01 Morbid (severe) obesity due to excess calories; Z68.44 Body mass index [BMI] 60.0-69.9, adult; I48.2 Chronic atrial fibrillation
CPT/HCPCS: 36415; 80048; 85027; 85610; 85730; J0690; J1100; J2405; J2704; J3010; J7040; S0028

== ENCOUNTER 2016-07-04 05:54 | Outpatient (CLI) | payer MEDICARE, OTHER ==
[~2016-07-04] VITALS: Ht 160 cm; Wt 128.4 kg
[~2016-07-04 05:54] MED LIST changes: -DEXAMETHASONE SOD PHOS 20 MG/5 ML VIAL. ONE; -FAMOTIDINE 20 MG/2 ML VIAL ONE; -HEPARIN SODIUM 5,000 UNIT in IV NORMAL SALINE 500ML BAG 500 ML IRR ONE; -HYDR-971 PO; -HYDROmorphone 2 MG/ML VIAL IV PRN; -IV NORMAL SALINE 1000ML BAG 1,000 ML IV SCH; -LIDOCAINE 1% 1 ML SYRINGE. ID PRN; -LIDOCAINE 1% PF 48 ML, SODIUM BICARBONATE VIAL 12 MEQ in TOTAL VOLUME SYRINGE 60 ML ID ONE; -LIDOCAINE 1% PF 5 ML VIAL. ONE; -MORPHINE SULFATE 2 MG/ML DISP.SYRIN. IV PRN; -ONDANSETRON PF 4 MG/2 ML VIAL. IV PRN; -ONDANSETRON PF 4 MG/2 ML VIAL. ONE; -PROCHLORPERAZINE 10 MG/2 ML VIAL. IV PRN; -PROPOFOL 0 ML IV ONE; -SURGICEL FIBRILLAR 1X2 EACH. ONE; -fentaNYL PF VIAL 100 MCG/2 ML VIAL IV PRN; -fentaNYL PF VIAL 100 MCG/2 ML VIAL ONE
[2016-07-04 07:32] LABS: BASO # 0.1 x10^3/uL (0.0-0.2); BASO % 1 % (0-3); EOS % 4 % (0-3); HEMATOCRIT 33.3 % (36.0-47.0); HEMOGLOBIN 10.6 g/dL (12.0-15.5); LYMPH # 0.8 x10^3/uL (1.0-4.8); LYMPH % 15 % (24-48); MEAN CORPUSCULAR HEMOGLOBIN 31 pg (25-35); MEAN CORPUSCULAR HGB CONC 32 g/dL (31-37); MEAN CORPUSCULAR VOLUME 98 fL (79-100); MONO % 11 % (0-9); NEUT % 69 % (31-73); PLATELET COUNT 166 x10^3/uL (140-400); RED BLOOD COUNT 3.41 x10^6/uL (3.50-5.40); RED CELL DISTRIBUTION WIDTH 15.1 % (11.5-14.5); WHITE BLOOD COUNT 5.6 x10^3/uL (4.0-11.0)
[2016-07-04 07:36] LABS: CALCIUM 9.2 mg/dL (8.5-10.1); CREATININE 6.9 mg/dL (0.6-1.0); GFR 7.3; POTASSIUM 4.7 mmol/L (3.5-5.1)
[2016-07-04 07:40] LABS: PROTHROMBIN TIME PATIENT 12.7 SEC (11.7-14.0)
[2016-07-04 07:51] VITALS: BP 126/53
[2016-07-04] MEDS ORDERED: LIDOCAINE 1% / SOD BICARB 8.4% 20 ML VIAL. IJ ONE ×2 (08:15→08:45)
[2016-07-04] MEDS ORDERED: IOHEXOL 300 MG/ML 100ML VIAL. ONE (08:15)
[2016-07-04] MEDS ORDERED: fentaNYL PF VIAL 100 MCG/2 ML VIAL ONE (08:21)
[2016-07-04] MEDS ORDERED: MIDAZOLAM HCL/PF 2 MG/2 ML VIAL. ONE (08:21)
[2016-07-04] MEDS ORDERED: CONTRAST GIVEN MC PRN (08:45)
[2016-07-04] MEDS ORDERED: IOHEXOL 300 MG/ML 100ML VIAL. IART ONE (08:45)
[2016-07-04] MEDS ORDERED: MIDAZOLAM HCL/PF 2 MG/2 ML VIAL. IV ONE (08:45)
[2016-07-04] MEDS ORDERED: fentaNYL PF VIAL 100 MCG/2 ML VIAL IV ONE (08:45)
[2016-07-04] MEDS ORDERED: IODIXANOL 320 MG/ML 100 ML VIAL. IART ONE (08:45)
[2016-07-04] MEDS ORDERED: IODIXANOL 320MG/ML 50ML VIAL. ONE ×2 (09:07→09:16)
[2016-07-04 09:28] VITALS: BP 134/67
[2016-07-04 09:40] VITALS: BP 121/49
--- NOTE | 2016-07-04 09:48 | PDOC ---
MODERATE SEDATION ASSESSMENT RISKS/ALTERNATIVES Risks/Alternatives Risks and alternatives of this type of sedation and procedure discussed with: RISK/ALTERNATIVES: Patient H & P ON CHART H & P H & P on chart and reviewed for co-morbid conditions and appropriate labs. H&P ON CHART: Yes STATUS PREG STATUS ASSESSED: N/A MEDS/ALLERGIES REVIEWED Meds/Allergies Reviewed Medications and Allergies including time and route of recently administered narcotics and sedatives. MEDS/ALLERGIES REVIEWED: Yes ASA RATING ASA RATING: III AIRWAY ASSESSMENT Airway Assessment Airway patency, oral function limitations, presence of caps, crowns, dentures, partials, and ability to extend neck assessed. AIRWAY ASSESSMENT: Yes MALLAMPATI SCORE MALLAMPATI SCORE: III PRE-SEDATION ASSESSMENT PRE-SEDATION ASSESSMENT: Yes DAKOTA YOUSIF MD July 04, 2016 09:48
--- NOTE | 2016-07-04 09:55 | PDOC1 ---
History and Physical Date of Procedure Date of Admission 07/04/16 Procedure Procedure Left upper extremity angio Indication Indication ESRD. Left upper arm AVG, with left hand ischemia, c/w steal phenomenon. Selective left upper extremity angio has been requested to evaluate for possible DRIL procedure Past Medical History Past Medical History See Nursing Pre procedure PMH Past Surgical History Past Surgical History See Nursing Pre procedure PSH Current Medications Current Medications Current Medications Iohexol (Omnipaque 300 Mg/ml) 100 ml STK-MED ONCE .ROUTE ; Start 07/04/16 at 08: 15; Stop 07/04/16 at 08:16; Status DC Lidocaine/Sodium Bicarbonate (Buffered Lidocaine 1%) 20 ml STK-MED ONCE IJ ; Start 07/04/16 at 08:15; Stop 07/04/16 at 08:16; Status DC Heparin Sodium/ Sodium Chloride 1,000 ml @ As Directed STK-MED ONCE .ROUTE ; Start 07/04/16 at 08:16; Stop 07/04/16 at 08:17; Status DC Fentanyl Citrate (Fentanyl 2ml Vial) 100 mcg STK-MED ONCE .ROUTE ; Start at 08:21; Stop 07/04/16 at 08:22; Status DC Midazolam HCl (Versed) 2 mg STK-MED ONCE .ROUTE ; Start 07/04/16 at 08:21; Stop 07/04/16 at 08:22; Status DC Heparin Sodium/ Sodium Chloride 1,000 unit 1X ONCE IART Last administered on 09:26; Start 07/04/16 at 08:45; Stop 07/04/16 at 08:46; Status DC Lidocaine/Sodium Bicarbonate (Buffered Lidocaine 1%) 20 ml 1X ONCE IJ Last administered on 07/04/16 09:26; Start 07/04/16 at 08:45; Stop 07/04/16 at 08:46 ; Status DC Midazolam HCl (Versed) 2 mg 1X ONCE IV Last administered on 07/04/16 09:27; Start 07/04/16 at 08:45; Stop 07/04/16 at 08:46; Status DC Fentanyl Citrate (Fentanyl 2ml Vial) 100 mcg 1X ONCE IV Last administered on 09:26; Start 07/04/16 at 08:45; Stop 07/04/16 at 08:46; Status DC Iohexol (Omnipaque 300 Mg/ml) 100 ml 1X ONCE IART Last administered on t 09:27; Start 07/04/16 at 08:45; Stop 07/04/16 at 08:46; Status DC Iodixanol (Visipaque 320) 100 ml 1X ONCE IART Last administered on 07/04/16t 09:26; Start 07/04/16 at 08:45; Stop 07/04/16 at 08:46; Status DC Info (Do NOT chart on this entry -- for MONITORING) 1 each PRN DAILY PRN MC SEE COMMENTS; Start 07/04/16 at 08:45; Stop 07/06/16 at 08:44 Iodixanol (Visipaque 320) 50 ml STK-MED ONCE .ROUTE ; Start 07/04/16 at 09:07; Stop 07/04/16 at 09:08; Status DC Iodixanol (Visipaque 320) 50 ml STK-MED ONCE .ROUTE ; Start 07/04/16 at 09:16; Stop 07/04/16 at 09:17; Status DC Active Scripts Active Amitiza (Lubiprostone) 8 Mcg Capsule 24 Mcg PO BIDWMEALS Tramadol Hcl 50 Mg Tablet 50 Mg PO PRN Q6HRS PRN Levemir Flextouch (Insulin Detemir) 100 Unit/1 Ml Insuln.pen 30 Units SQ DAILY Novolog Flexpen (Insulin Aspart) 100 Unit/1 Ml Insuln.pen 12 Units SQ TIDWMEALS Reported Ferrous Sulfate 325 Mg Tablet 325 Mg PO DAILY Sensipar (Cinacalcet Hcl) 30 Mg Tablet 30 Mg PO DAILY Aspirin Ec (Aspirin) 81 Mg Tablet.dr 81 Mg PO DAILY Atorvastatin Calcium 40 Mg Tablet 40 Mg PO HS Amiodarone Hcl 200 Mg Tablet 1 Tab PO DAILY Vitamin D (Cholecalciferol (Vitamin D3)) 2,000 Unit Capsule 1 Cap PO DAILY Levothyroxine Sodium 75 Mcg Tablet 1 Tab PO DAILY Dok Plus Tablet (Sennosides/Docusate Sodium) 1 Each Tablet 2 Each PO BID Tums (Calcium Carbonate) 200 Mg Tab.chew 500 Mg PO DAILY Renvela (Sevelamer Carbonate) 800 Mg Tablet 3,200 Mg PO TIDWMEALS Amitriptyline Hcl 50 Mg Tablet 50 Mg PO HS Nephro-Migdalia Tablet (Folic Acid/Vitamin B Comp W-C) 0.8 Mg Tablet 0.8 Mg PO DAILY Allergies Allergies: Coded Allergies: I S O L A T I O N *CONTACT* (Verified Allergy, Unknown, 06/27/16) mrsa screen + No Known Medication Allergies (Verified Allergy, Unknown, 06/27/16) Physical Exam Vital Signs Vital Signs Date Time Temp Pulse Resp B/P (MAP) Pulse Ox O2 Delivery O2 Flow Rate FiO2 07/04/16 09:28 75 16 99 Nasal Cannula 2.0 07/04/16 07:51 98.1 126/53 (77) 98.1 Lungs: Clear to auscultation Heart: Regular rate Psych/Mental Status: Mental status NL Vascular Palpable left upper arm AVG thrill. Nonpalpable left wrist pulses. Assessment Assessment 61 YO female with ESRD. S/P recent ligation of left upper arm brachio-basilic AVF, with placement of brachio-brachial AVG. Now with left hand ischemia, c/w steal phenomenon. Problems: Plan Plan Selective left upper extremity angio has been requested by vascular surgery to evaluate for possible DRIL procedure. DAKOTA YOUSIF MD July 04, 2016 09:55
--- NOTE | 2016-07-04 10:02 | PDOC ---
Exam Rubber Compounder Rubber Compounder Hayder Scorekeeper Scorekeeper B Cates Pre-Procedure Diagnosis Pre-Procedure Diagnosis 61 YO female with ESRD. She has had recent (05/11/16) ligation of left brachio- basilic AVF, with creation of new left brachio-brachial AVG. She has left hand ischemia, with nonpalpable left wrist pulses, c/w steal phenomenon. Post-Procedure Diagnosis Post-Procedure Diagnosis Same---AVG steal phenomenon confirmed and arterial anatomy documented. Procedure Performed Procedure Performed Selective left upper extremity performed via U/S guided arterial limb AVG access. Images from left elbow thru left wrist/hand performed with and without AVG balloon occlusion. Type of Anesthesia Type of Anesthesia Local + Mod sedation Estimated Blood Loss EBL: 25 cc Condition of Patient Condition of Patient Stable. Sedated. No apparent complication. Disposition Disposition Discharge from [facility] post recovery, if no problems. F/u with Renal and Vascular Surgery. Full report to follow. DAKOTA YOUSIF MD July 04, 2016 10:02
[2016-07-04 10:10] VITALS: BP 103/55
[2016-07-04 10:30] VITALS: BP 103/55
[2016-07-04 11:00] VITALS: BP 120/65
--- NOTE | 2016-07-05 07:15 | RAD ---
Left upper extremity arteriogram Indication: 61-year-old female with end-stage renal disease, and with a left brachial artery to brachial vein AV graft placed 05/11/2016. She has left hand ischemic changes, consistent with AV graft steal phenomenon. Diagnostic arteriogram has been requested by vascular surgery, to confirm steal phenomenon, and to provide vascular anatomy for probable DRIL procedure. Fluoroscopy time: 8.5 minutes Kerma-area Product: 60 Gycm2 Contrast material: 85 cc Visipaque 320 Anesthesia: 50 minutes moderate sedation was provided utilizing a total of 2 mg Versed and 100 mcg fentanyl, IV. The patient was appropriately monitored by a qualified independent observer throughout the time of moderate sedation. Consent: The procedure was explained in its entirety to the patient and/or the patient's designated ict sales representative by a member of the treatment team. This included a discussion of risks and benefits and commonly accepted alternatives to the procedure, as well as expected consequences of no treatment at all. Discussion of risks included, but was not limited to, those that are most frequent and those that are rare, but possibly severe or life-threatening, as well as the possibility of unforeseen complications. Sterility: All elements of maximal sterile barrier technique, hand hygiene, skin preparation, and, if ultrasound was used, sterile ultrasound technique were followed. Procedure: Informed consent was obtained from the patient. She was placed supine on the angiography table. Moderate sedation was provided with IV Versed and fentanyl. Left upper arm was prepped and draped in the usual sterile fashion, utilizing all elements of maximal sterile barrier technique, as described above. Ultrasound-guided access: Preliminary ultrasound examination over left upper arm confirmed widely patent AV graft. A site suitable for ultrasound-guided insertion of a proximal arterial limb vascular sheath was selected, was marked, and was documented with a hard copy ultrasound image. Using aseptic technique, local anesthesia, direct sterile ultrasound guidance, and the micropuncture system, a 5 Malagasy arterial limb sheath was successfully introduced, with its tip directed toward arterial anastomosis of the AV graft. Left upper extremity arteriogram: Using aseptic technique and fluoroscopic guidance, a 5 Malagasy Berenstein catheter was advanced through the arterial limb sheath and was successfully directed over a Glidewire across arterial anastomosis. The Berenstein catheter was then carefully advanced centrally to lie with its tip at left subclavian artery origin from aortic arch. Visipaque 320 was injected and DSA images were obtained over left subclavian and axillary arteries. The Berenstein catheter was then withdrawn into left axillary artery. Visipaque 320 was again injected and DSA images were obtained from left shoulder through elbow. The Berenstein catheter was then withdrawn into left brachial artery at the level of distal humerus. Dilute Visipaque was then injected and DSA images were obtained from left elbow through wrist. The Berenstein catheter was then exchanged over a eeden advantage guidewire for a 5 mm x 2 cm Cordis Powerflex TELEVISION NEWS REPORTER balloon which was advanced through the 5 Malagasy sheath and was gently inflated within proximal arterial limb of the AV graft, providing obstruction of flow through the graft. Dilute Visipaque was then injected and DSA images were obtained from left elbow through wrist. The TELEVISION NEWS REPORTER balloon was then deflated and removed. Findings: Left subclavian artery and axillary artery are widely patent. A 4 cm segment of distal left brachial artery, at/above arterial anastomosis shows moderate, calcific narrowing. Images obtained over forearm without balloon occlusion of the AV graft revealed sluggish contrast opacification of distal brachial artery, followed by sluggish opacification of single vessel radial artery distal runoff to left wrist/hand. However, images obtained with balloon occlusion of the AV graft revealed brisk opacification of widely patent arterial anastomosis and distal brachial artery at elbow, followed by brisk opacification of, radial artery, ulnar artery, and interosseous arteries through wrist. Patient tolerated the procedure well without apparent complication. The 5 Malagasy arterial limb sheath was removed and hemostasis was achieved utilizing 2-0 silk in a pursestring fashion. Impression: Successful, uneventful left upper extremity arteriogram, performed via ultrasound-guided access into arterial limb of left upper arm AV graft, as described. Images obtained with and without balloon occlusion of the AV graft confirmed angiographic findings consistent with steal phenomenon.
== END 2016-07-04 11:15 | disposition home or self-care (01) ==
LOC: INTRAD 05:54
DX: E11.22 Type 2 diabetes mellitus with diabetic chronic kidney disease (principal); I12.0 Hypertensive chronic kidney disease with stage 5 chronic kidney disease or end stage renal disease; N18.6 End stage renal disease; E03.9 Hypothyroidism, unspecified; D64.9 Anemia, unspecified; E66.9 Obesity, unspecified; E78.00 Pure hypercholesterolemia, unspecified; Z98.41 Cataract extraction status, right eye; Z98.42 Cataract extraction status, left eye
CPT/HCPCS: 36120; 36415; 36901; 75710; 76937; 80048; 85027; 85610; C1713; C1725; C1769; C1892; C1894; J2250; J3010; Q9967

== ENCOUNTER 2016-07-06 11:45 | Emergency (ER) | payer MEDICARE, OTHER ==
[~2016-07-06] VITALS: Ht 160 cm; Wt 128.4 kg
[~2016-07-06 11:45] MED LIST changes: +ASPI-612 PO; -ASPI81TA9 PO; -CINA30TA PO; +CINA30TA2 PO; +FERR-36 PO; -FERR325T31 PO; -LUBI8CAP3 PO; +LUBI8CAP4 PO
[2016-07-06] MEDS ORDERED: ACETAMINOPHEN 500 MG TABLET PO ONE (12:15)
[2016-07-06 13:29] LABS: BASO # 0.1 x10^3/uL (0.0-0.2); BASO % 1 % (0-3); EOS % 3 % (0-3); HEMATOCRIT 35.4 % (36.0-47.0); HEMOGLOBIN 11.4 g/dL (12.0-15.5); LYMPH # 0.6 x10^3/uL (1.0-4.8); LYMPH % 12 % (24-48); MEAN CORPUSCULAR HEMOGLOBIN 31 pg (25-35); MEAN CORPUSCULAR HGB CONC 32 g/dL (31-37); MEAN CORPUSCULAR VOLUME 98 fL (79-100); MONO % 9 % (0-9); NEUT % 75 % (31-73); PLATELET COUNT 174 x10^3/uL (140-400); RED BLOOD COUNT 3.63 x10^6/uL (3.50-5.40); WHITE BLOOD COUNT 5.4 x10^3/uL (4.0-11.0)
[2016-07-06 13:30] LABS: CALCIUM 9.4 mg/dL (8.5-10.1); CREATININE 7.2 mg/dL (0.6-1.0); POTASSIUM 4.9 mmol/L (3.5-5.1)
[2016-07-06] MEDS ORDERED: fentaNYL PF VIAL 100 MCG/2 ML VIAL IV PRN (14:45)
--- NOTE | 2016-07-06 15:25 | ED.ADGEN ---
Past Medical History Past Medical History: A-Fib, Arrhythmia, Constipation, Diabetes-Type II, High Cholesterol, Hypertension, Hypothyroid, Renal Failure Past Surgical History: , Tonsillectomy, Other Additional Past Surgical Histo: AV fistula(R ARM/L ARM), SHUNT(R CHEST/L CHEST) Alcohol Use: None Drug Use: None Adult General Chief Complaint Chief Complaint: DIALYSIS PROBLEM HPI HPI Patient is a 61 year old woman, history of type 2 diabetes mellitus, hypertension, hyperlipidemia, end-stage renal disease on hemodialysis, who currently has a left sided chest catheter in place for her dialysis access, with 1 failed graft in the right upper extremity and to fill graft in the left. Patient presents with worsening paresthesias, pain and swelling in her left hand , with history of poor vascular flow in the left upper extremity following her AV graft placement and failures. Patient had an angiogram of the left upper extremity performed 2 days ago, which revealed significant steel as the source of the patient's symptoms. Patient had a truncated dialysis session performed via her left chest catheter earlier today, and presents the emergency department via EMS with complaints of worsening pain and paresthesias in the left hand, with recommendation from the vascular surgery office that she receive evaluation for possible arterial compromise following her recent evaluation. Patient declined any medications for the Tylenol, stating that "my sister of an overdose and I don't take any narcotic medications." He denies any chest pain or shortness breath, any fevers or chills, any injuries, any focal weakness, numbness, tingling, headache or other complaints. Review of Systems Review of Systems Constitutional: Denies fever or chills. [] Eyes: Denies change in visual acuity. [] HENT: Denies nasal congestion or sore throat. [] Respiratory: Denies cough or shortness of breath. [] Cardiovascular: Denies chest pain or edema. [] GI: Denies abdominal pain, nausea, vomiting, bloody stools or diarrhea. [] : Denies dysuria. [] Musculoskeletal: Denies back pain, left hand pain, paresthesias. Integument: Denies rash. [] Neurologic: Denies headache, focal weakness or sensory changes. [] Endocrine: Denies polyuria or polydipsia. [] Lymphatic: Denies swollen glands. [] Psychiatric: Denies depression or anxiety. [] Current Medications Current Medications Current Medications Medications (Trade) Dose Ordered Sig/Adithya Start Time Stop Time Status Last Admin Dose Admin Acetaminophen (Tylenol) 1,000 mg 1X ONCE 07/06/16 12:15 07/06/16 12:16 DC 07/06/16 12:13 1,000 MG Fentanyl Citrate (Fentanyl 2ml Vial) 25 mcg PRN Q15MIN PRN 07/06/16 14:45 07/07/16 14:44 Allergies Allergies Allergies Coded Allergies Type Severity Reaction Last Updated Verified I S O L A T I O N *CONTACT* Allergy Unknown 06/27/16 Yes No Known Medication Allergies Allergy Unknown 06/27/16 Yes Physical Exam Physical Exam Constitutional: Well developed, well nourished, no acute distress, non-toxic appearance. [] HENT: Normocephalic, atraumatic, bilateral external ears normal, oropharynx moist, no oral exudates, nose normal. [] Eyes: PERRLA, EOMI, conjunctiva normal, no discharge. [] Neck: Normal range of motion, no tenderness, supple, no stridor. [] Cardiovascular:Heart rate regular rhythm, no murmur, S1, S2, rubs or gallops. [] Lungs & Thorax: Bilateral breath sounds clear to auscultation, no wheezing, rhonchi, rales. No chest tenderness or crepitus. Patient with left-sided dialysis catheter in place, site is clean dry and intact. [] Abdomen: Bowel sounds normal, soft, no tenderness, no masses, no pulsatile masses. [] Skin: Warm, dry, no erythema, no rash. [] Back: No tenderness, no CVA tenderness. [] Extremities: Patient with suture in place in the left upper extremity, there is no palpable hematoma, site is clean dry and intact. Patient with 2 AV fistula sites noted in the left upper extremity, the upper site has a very weak thrill, the lower site has no thrill at all, both sites are clean dry and intact, with no tenderness or abnormality identified, patient with swelling of all fingers on the left hand, skin is slightly cooler in his hand and on the right, with no palpable radial or ulnar pulse, patient with pain with even light palpation across the fingers and the dorsum and palm of the hands, no external signs of trauma identified, no cyanosis, right upper extremity with AV fistula in place, no thrill noted. Neurologic: Alert and oriented X 3, normal motor function, normal sensory function, no focal deficits noted. [] Psychologic: Affect normal, judgement normal, mood normal. [] Current Patient Data Vital Signs Vital Signs Date Time Temp Pulse Resp B/P (MAP) Pulse Ox O2 Delivery O2 Flow Rate FiO2 07/06/16 15:51 84 97/45 (62) 97 Room Air 07/06/16 14:33 18 07/06/16 11:45 98.2 98.2 Lab Values Laboratory Tests Test 07/06/16 13:15 White Blood Count 5.4 x10^3/uL (4.0-11.0) Red Blood Count 3.63 x10^6/uL (3.50-5.40) Hemoglobin 11.4 g/dL (12.0-15.5) L Hematocrit 35.4 % (36.0-47.0) L Mean Corpuscular Volume 98 fL (79-100) Mean Corpuscular Hemoglobin 31 pg (25-35) Mean Corpuscular Hemoglobin Concent 32 g/dL (31-37) Red Cell Distribution Width 15.0 % (11.5-14.5) H Platelet Count 174 x10^3/uL (140-400) Neutrophils (%) (Auto) 75 % (31-73) H Lymphocytes (%) (Auto) 12 % (24-48) L Monocytes (%) (Auto) 9 % (0-9) Eosinophils (%) (Auto) 3 % (0-3) Basophils (%) (Auto) 1 % (0-3) Neutrophils # (Auto) 4.0 x10^3uL (1.8-7.7) Lymphocytes # (Auto) 0.6 x10^3/uL (1.0-4.8) L Monocytes # (Auto) 0.5 x10^3/uL (0.0-1.1) Eosinophils # (Auto) 0.2 x10^3/uL (0.0-0.7) Basophils # (Auto) 0.1 x10^3/uL (0.0-0.2) Sodium Level 137 mmol/L (136-145) Potassium Level 4.9 mmol/L (3.5-5.1) Chloride Level 99 mmol/L (98-107) Carbon Dioxide Level 29 mmol/L (21-32) Anion Gap 9 (6-14) Blood Urea Nitrogen 43 mg/dL (7-20) H Creatinine 7.2 mg/dL (0.6-1.0) H Estimated GFR (Cockcroft-Gault) 7.0 Glucose Level 297 mg/dL (70-99) H Calcium Level 9.4 mg/dL (8.5-10.1) Laboratory Tests 07/06/16 13:15 Laboratory Tests 07/06/16 13:15 EKG EKG ECG: Rhythm strip: Heart rate 85 beats minute, sinus rhythm, no ectopy. As interpreted by me. [] Radiology/Procedures Radiology/Procedures [][facility] [address] [place] [address] IMAGING REPORT Signed PATIENT: OSCAR FRANCE ACCOUNT: [id number] : 1955 LOCATION: [facility] AGE: 61 SEX: F EXAM STATUS: DEP CLI ORD. PHYSICIAN: STEPH BOOKER MD REASON: ENDSTAGE RENAL DISEASE PRE-OP PROCEDURE: 14111 ANGIO EXTREMITY LEFT Left upper extremity arteriogram Indication: 61-year-old female with end-stage renal disease, and with a left brachial artery to brachial vein AV graft placed 05/11/2016. She has left hand ischemic changes, consistent with AV graft steal phenomenon. Diagnostic arteriogram has been requested by vascular surgery, to confirm steal phenomenon, and to provide vascular anatomy for probable DRIL procedure. Fluoroscopy time: 8.5 minutes Kerma-area Product: 60 Gycm2 Contrast material: 85 cc Visipaque 320 Anesthesia: 50 minutes moderate sedation was provided utilizing a total of 2 mg Versed and 100 mcg fentanyl, IV. The patient was appropriately monitored by a qualified independent observer throughout the time of moderate sedation. Consent: The procedure was explained in its entirety to the patient and/or the patient's designated patient account representative by a member of the treatment team. This included a discussion of risks and benefits and commonly accepted alternatives to the procedure, as well as expected consequences of no treatment at all. Discussion of risks included, but was not limited to, those that are most frequent and those that are rare, but possibly severe or life-threatening, as well as the possibility of unforeseen complications. Sterility: All elements of maximal sterile barrier technique, hand hygiene, skin preparation, and, if ultrasound was used, sterile ultrasound technique were followed. Procedure: Informed consent was obtained from the patient. She was placed supine on the angiography table. Moderate sedation was provided with IV Versed and fentanyl. Left upper arm was prepped and draped in the usual sterile fashion, utilizing all elements of maximal sterile barrier technique, as described above. Ultrasound-guided access: Preliminary ultrasound examination over left upper arm confirmed widely patent AV graft. A site suitable for ultrasound-guided insertion of a proximal arterial limb vascular sheath was selected, was marked, and was documented with a hard copy ultrasound image. Using aseptic technique, local anesthesia, direct sterile ultrasound guidance, and the micropuncture system, a 5 Chilean arterial limb sheath was successfully introduced, with its tip directed toward arterial anastomosis of the AV graft. Left upper extremity arteriogram: Using aseptic technique and fluoroscopic guidance, a 5 Chilean Berenstein catheter was advanced through the arterial limb sheath and was successfully directed over a Glidewire across arterial anastomosis. The Berenstein catheter was then carefully advanced centrally to lie with its tip at left subclavian artery origin from aortic arch. Visipaque 320 was injected and DSA images were obtained over left subclavian and axillary arteries. The Berenstein catheter was then withdrawn into left axillary artery. Visipaque 320 was again injected and DSA images were obtained from left shoulder through elbow. The Berenstein catheter was then withdrawn into left brachial artery at the level of distal humerus. Dilute Visipaque was then injected and DSA images were obtained from left elbow through wrist. The Berenstein catheter was then exchanged over a [place]ambu advantage guidewire for a 5 mm x 2 cm Cordis Powerflex HUMANE OFFICER balloon which was advanced through the 5 Chilean sheath and was gently inflated within proximal arterial limb of the AV graft, providing obstruction of flow through the graft. Dilute Visipaque was then injected and DSA images were obtained from left elbow through wrist. The HUMANE OFFICER balloon was then deflated and removed. Findings: Left subclavian artery and axillary artery are widely patent. A 4 cm segment of distal left brachial artery, at/above arterial anastomosis shows moderate, calcific narrowing. Images obtained over forearm without balloon occlusion of the AV graft revealed sluggish contrast opacification of distal brachial artery, followed by sluggish opacification of single vessel radial artery distal runoff to left wrist/hand. However, images obtained with balloon occlusion of the AV graft revealed brisk opacification of widely patent arterial anastomosis and distal brachial artery at elbow, followed by brisk opacification of, radial artery, ulnar artery, and interosseous arteries through wrist. Patient tolerated the procedure well without apparent complication. The 5 Chilean arterial limb sheath was removed and hemostasis was achieved utilizing 2-0 silk in a pursestring fashion. Impression: Successful, uneventful left upper extremity arteriogram, performed via ultrasound-guided access into arterial limb of left upper arm AV graft, as described. Images obtained with and without balloon occlusion of the AV graft confirmed angiographic findings consistent with steal phenomenon. DICTATED and SIGNED BY: DAKOTA SINGLETARY MD DATE: 07/05/16637 CC: STEPH BOOKER MD; VÍCTOR MACKEY MD ~ Course & Med Decision Making Course & Med Decision Making Pertinent Labs and Imaging studies reviewed. (See chart for details) Patient received Tylenol in the emergency department, is declining any started pain medication at this time. I did discuss examination findings with Eliana, nurse practitioner for Dr. Booker, the patient's vascular surgeon, who requests that Dr. Singletary of interaction radiology be contacted to evaluate the patient, due to the recent arterial imaging. I did speak with Dr. Singletary, who did evaluate the patient in the emergency department, there is no evidence of bleeding, he does not believe that there is an acute issue from the recent procedure that is contributing to the patient's symptoms. I also spoke with Dr. Mustafa, who is covering for the patient's vascular surgeon, he will evaluate the patient in the emergency department, the patient will likely need to have her graft tied off, to restore vascular flow to the lower extremity. Basic laboratory studies were obtained, that revealed no acutely concerning findings, after several hours of observation the ED, with persistent pain, patient was transported to the OR, to be evaluated by vascular surgery, and for ligation of her graft. Plan is for the patient be discharged post operatively. Patient voiced understanding and agreement with this plan, transported to the OR holding area where she will speak with without issue. Dragon Disclaimer Dragon Disclaimer This electronic medical record was generated, in whole or in part, using a voice recognition dictation system. Departure Disposition: 01 HOME, SELF-CARE Condition: STABLE NICOLEL,YAA M DO July 06, 2016 15:25
[2016-07-06] MEDS ORDERED: LIDOCAINE 1%/EPI 1:100,000 20 ML VIAL. ONE (17:03)
[2016-07-06] MEDS ORDERED: IV NORMAL SALINE 1000ML BAG 1,000 ML IV ONE (17:15)
--- NOTE | 2016-07-06 18:29 | PDOC4 ---
Operative Note Operative Note op note dictated Dx: vascular steal left hand due to left arm av shunt esrd Op: ligate left upper arm av graft local to rr in sat cond. NEREIDA GILLILAND II, MD July 06, 2016 18:29
[2016-07-06 18:41] VITALS: BP 127/55
[2016-07-06] MEDS ORDERED: HYDROcodone/APAP 5/325MG 1 TAB TABLET PO ONE (18:45)
[2016-07-06] MEDS ORDERED: HYDROcodone/APAP 5/325MG 1 TAB TABLET PO PRN (19:15)
[2016-07-06] MEDS ORDERED: HYDR-971 PO ×2 (19:16→20:29)
--- NOTE | 2016-07-06 23:28 | OP ---
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 OPERATION PERFORMED: Ligation of AV shunt. SURGEON: Rehan Mustafa M.D. CHEMICAL DETECTION EXPERT: None. ANESTHESIA: Local. DESCRIPTION OF PROCEDURE: The left arm was prepped and draped. An incision was made with 1% lidocaine over the palpable graft. The graft was exposed and encircled with 2-0 silk ties and ligated. The incision was closed with running 3-0 nylon. The patient tolerated the procedure well. REHAN MUSTAFA MD DR: SANJEEV/yenny JOB#: [id number] / [id number]
== END 2016-07-06 20:21 | disposition home or self-care (01) ==
LOC: ER 11:45 → SURHOP 16:21 → ER 20:21
DX: R20.9 Unspecified disturbances of skin sensation (principal); M79.642 Pain in left hand; R22.32 Localized swelling, mass and lump, left upper limb; I48.91 Unspecified atrial fibrillation; E11.22 Type 2 diabetes mellitus with diabetic chronic kidney disease; I12.0 Hypertensive chronic kidney disease with stage 5 chronic kidney disease or end stage renal disease; N18.6 End stage renal disease; E78.00 Pure hypercholesterolemia, unspecified; E03.9 Hypothyroidism, unspecified; E78.5 Hyperlipidemia, unspecified; Z91.041 Radiographic dye allergy status; Z99.2 Dependence on renal dialysis
CPT/HCPCS: 36415; 37607; 80048; 85027; 96361; 96365; 99285; J0690; J3490; J7030; 99284-25

== ENCOUNTER 2016-07-17 11:42 | Emergency (ER) | payer MEDICARE, OTHER ==
[~2016-07-17] VITALS: Ht 160 cm; Wt 128.4 kg
[~2016-07-17 11:42] MED LIST changes: +HYDR-971 PO
--- NOTE | 2016-07-17 12:26 | PHYS DOC ---
Past Medical History Past Medical History: A-Fib, Arrhythmia, Constipation, Diabetes-Type II, High Cholesterol, Hypertension, Hypothyroid, Renal Failure Past Surgical History: , Tonsillectomy, Other Additional Past Surgical Histo: AV fistula(R ARM/L ARM), SHUNT(R CHEST/L CHEST) Alcohol Use: None Drug Use: None Adult General Chief Complaint Chief Complaint: HAND PROBLEM HPI HPI Patient is a 61 year old female with recent LUE graft occlusion to fix steal syndrome who presents with worsening left hand, index finger, and long finger pain since operation and notes some darkening of the skin in these areas since as well. States her fingernails are falling off here too. She notes similar swelling, weakness and cool sensation unchanged from prior to operation. She denies injury, f/c, drainage. States she completed dialysis session prior to coming today. She gets haparin with dialysis and takes a daily ASA. Review of Systems Review of Systems Constitutional: Denies fever or chills [] Eyes: Denies change in visual acuity, redness, or eye pain [] HENT: Denies nasal congestion or sore throat [] Respiratory: Denies cough or shortness of breath [] Cardiovascular: No additional information not addressed in HPI [] GI: Denies abdominal pain, nausea, vomiting, bloody stools or diarrhea [] : Denies dysuria or hematuria [] Musculoskeletal: Denies back pain [] Integument: Denies rash or skin lesions [] Neurologic: Denies headache, focal weakness or sensory changes [] Endocrine: Denies polyuria or polydipsia [] Allergies Allergies Allergies Coded Allergies Type Severity Reaction Last Updated Verified I S O L A T I O N *CONTACT* Allergy Unknown 06/27/16 Yes No Known Medication Allergies Allergy Unknown 06/27/16 Yes Physical Exam Physical Exam Constitutional: Well developed, well nourished, no acute distress, non-toxic appearance. [] HENT: Normocephalic, atraumatic, bilateral external ears normal, oropharynx moist, nose normal. [] Eyes: PERRLA, EOMI. [] Neck: Normal range of motion, supple. [] Cardiovascular:Heart rate regular rhythm [] Lungs & Thorax: Bilateral breath sounds clear to auscultation [] Abdomen: Bowel sounds normal, soft, no tenderness. [] Skin: Warm, dry, no erythema, no rash. [] Back: Normal ROM. [] Extremities: LUE with healing incision sites that are c/d/i to upper arm, equal coloration of upper arm and forearm, some dark discoloration to index and long fingers with dark nail beds and nail raising from nail beds, some pale discoloration of pads of index and long fingers; fingers slightly cool to touch compared to right hand; Full ROM with shoulder/elbow/wrist; Can pronate/supinate ; Hand held in comfort extension, can touch thumb to small finger, but otherwise minimally flex/ex middle 3 fingers; Can flex/ex wrist; No palpable pulses; No thrill in upper extremity; sensation intact to light touch m/u/r/ax nerves, but diminished in fingertips Neurologic: Alert and oriented X 3, normal motor function, normal sensory function, no focal deficits noted. [] Psychologic: Affect normal, judgement normal, mood normal. [] Current Patient Data Vital Signs Vital Signs Date Time Temp Pulse Resp B/P (MAP) Pulse Ox O2 Delivery O2 Flow Rate FiO2 07/17/16 14:20 82 20 104/53 (70) 95 07/17/16 12:54 Room Air 07/17/16 11:48 97.9 97.9 Radiology/Procedures Radiology/Procedures Ultrasound arterial Doppler left upper extremity IMPRESSION: No evidence of high-grade arterial stenosis in the major arteries of the left upper extremity. Occluded AV fistula. DICTATED and SIGNED BY: SEBASTIAN CAMPBELL MD DATE: 07/17/16 8255 Course & Med Decision Making Course & Med Decision Making Pertinent Labs and Imaging studies reviewed. (See chart for details) Have concern for ischemic pain vs reperfusion pain vs other. Discussed case with Dr. Orr, vascular surgery, who recommended arterial Doppler. Doppler is reassuring as above. Dr. Orr recommends follow up in clinic. Return precautions given. She understands and agrees with plan. Dragon Disclaimer Dragon Disclaimer This electronic medical record was generated, in whole or in part, using a voice recognition dictation system. Departure Departure Impression: Primary Impression: Left hand pain Disposition: 01 HOME, SELF-CARE Condition: STABLE Referrals: VÍCTOR MACKEY MD (PCP) NEREIDA GILLILAND II, MD Patient Instructions: Peripheral Vascular Disease, [id number] Additional Instructions: Take Tylenol or ibuprofen as needed for moderate pain. Take hydrocodone as needed for severe pain. Do not drink, drive or operate heavy machinery after taking hydrocodone as it may make you sleepy. Follow-up with your primary care doctor. Return for any concerns. Scripts Hydrocodone Bit/Acetaminophen (HYDROCODONE-APAP 5-325 ) 1 Each Tablet 1 TAB PO PRN Q6HRS Y for PAIN, #10 TAB 0 Refills Prov: Leslie LEYVA MD 07/17/16 Leslie LEYVA MD Jul 17, 2016 12:26
--- NOTE | 2016-07-17 13:42 | RAD ---
Indication left hand pain. Grayscale color Doppler and spectral imaging was performed. The examination was targeted to the major arteries of the left upper extremity. Note is made that the patient has an AV graft in the left arm. The subclavian artery is patent and demonstrates a biphasic waveform. A similar waveform is seen in the axillary artery. The brachial artery has a biphasic waveform. The radial and ulnar arteries are both biphasic. An AV fistula in the left upper extremity is noted which is occluded. IMPRESSION: No evidence of high-grade arterial stenosis in the major arteries of the left upper extremity. Occluded AV fistula.
[2016-07-17 14:20] VITALS: BP 104/53
[2016-07-17] MEDS ORDERED: HYDR-2758 PO (14:36)
== END 2016-07-17 15:11 | disposition home or self-care (01) ==
LOC: ER 11:42
DX: M79.642 Pain in left hand (principal); M79.645 Pain in left finger(s); R53.1 Weakness; R22.32 Localized swelling, mass and lump, left upper limb; I48.91 Unspecified atrial fibrillation; E78.00 Pure hypercholesterolemia, unspecified; E11.22 Type 2 diabetes mellitus with diabetic chronic kidney disease; I12.9 Hypertensive chronic kidney disease with stage 1 through stage 4 chronic kidney disease, or unspecified chronic kidney disease; N18.9 Chronic kidney disease, unspecified; E03.9 Hypothyroidism, unspecified; Z91.041 Radiographic dye allergy status; Z90.89 Acquired absence of other organs; Z98.890 Other specified postprocedural states
CPT/HCPCS: 93931; 99284-25

== ENCOUNTER 2016-09-27 10:43 | Emergency (ER) | payer OTHER ==
[~2016-09-27] VITALS: Ht 160 cm; Wt 142.4 kg
[~2016-09-27 10:43] MED LIST changes: +HYDR-2758 PO
[2016-09-27 11:14] LABS: BASO # 0.1 x10^3/uL (0.0-0.2); BASO % 1 % (0-3); EOS % 2 % (0-3); HEMOGLOBIN 10.5 g/dL (12.0-15.5); LYMPH # 0.6 x10^3/uL (1.0-4.8); LYMPH % 9 % (24-48); MEAN CORPUSCULAR HEMOGLOBIN 32 pg (25-35); MEAN CORPUSCULAR HGB CONC 33 g/dL (31-37); MEAN CORPUSCULAR VOLUME 97 fL (79-100); MONO % 9 % (0-9); NEUT % 80 % (31-73); PLATELET COUNT 156 x10^3/uL (140-400); RED BLOOD COUNT 3.32 x10^6/uL (3.50-5.40); RED CELL DISTRIBUTION WIDTH 13.7 % (11.5-14.5); WHITE BLOOD COUNT 6.5 x10^3/uL (4.0-11.0)
[2016-09-27 11:22] LABS: CALCIUM 8.6 mg/dL (8.5-10.1); CREATININE 5.1 mg/dL (0.6-1.0); GFR 10.4; POTASSIUM 3.8 mmol/L (3.5-5.1)
[2016-09-27 11:28] LABS: ALBUMIN 3.3 g/dL (3.4-5.0); ALBUMIN/GLOBULIN RATIO 0.8 (1.0-1.7); TOTAL BILIRUBIN 0.3 mg/dL (0.2-1.0); TOTAL PROTEIN 7.5 g/dL (6.4-8.2)
[2016-09-27 12:00] VITALS: BP 119/59
--- NOTE | 2016-09-27 12:06 | PHYS DOC ---
Past Medical History Past Medical History: A-Fib, Arrhythmia, Constipation, Diabetes-Type II, High Cholesterol, Hypertension, Hypothyroid, Renal Failure Past Surgical History: , Tonsillectomy, Other Additional Past Surgical Histo: AV fistula(R ARM/L ARM), SHUNT(R CHEST/L CHEST) Alcohol Use: None Drug Use: None Adult General Chief Complaint Chief Complaint: HYPOTENSION HPI HPI Patient is a 61 year old female presenting to the emergency department for evaluation of dizziness in the setting of receiving dialysis and becoming hypotensive. Reportedly she was approximately 18 kg above weight prior to dialysis so they took off a substantial amount of fluid. At the end of the dialysis run she started becoming dizzy and lightheaded so they checked her blood pressure and it was 80 systolic so they called the ambulance. Patient says that she is feeling back to baseline now except she has her usual leg cramps after dialysis. She says that she is hungry and thirsty. She denies any new pain fevers chills nausea vomiting or other systemic symptoms. Review of Systems Review of Systems Constitutional: Denies fever or chills [] Eyes: Denies change in visual acuity, redness, or eye pain [] HENT: Denies nasal congestion or sore throat [] Respiratory: Denies cough or shortness of breath [] Cardiovascular: No additional information not addressed in HPI [] GI: Denies abdominal pain, nausea, vomiting, bloody stools or diarrhea [] : Denies dysuria or hematuria [] Musculoskeletal: Denies back pain or joint pain [] Integument: Denies rash or skin lesions [] Neurologic: Denies headache, focal weakness or sensory changes [] Allergies Allergies Allergies Coded Allergies Type Severity Reaction Last Updated Verified I S O L A T I O N *CONTACT* Allergy Unknown 06/27/16 Yes No Known Medication Allergies Allergy Unknown 06/27/16 Yes Physical Exam Physical Exam Constitutional: Well developed, well nourished, no acute distress, non-toxic appearance. [] HENT: Normocephalic, atraumatic, bilateral external ears normal, oropharynx moist, no oral exudates, nose normal. [] Eyes: PERRLA, EOMI, conjunctiva normal, no discharge. [] Neck: Normal range of motion, no tenderness, supple, no stridor. [] Cardiovascular:Heart rate regular rhythm, no murmur [] Lungs & Thorax: Bilateral breath sounds clear to auscultation [] Abdomen: Bowel sounds normal, soft, no tenderness, no masses, no pulsatile masses. [] Skin: Warm, dry, no erythema, no rash. [] Back: No tenderness, no CVA tenderness. [] Extremities: No tenderness, no cyanosis, no clubbing, ROM intact, no edema. [] Neurologic: Alert and oriented X 3, normal motor function, normal sensory function, no focal deficits noted. [] Psychologic: Affect normal, judgement normal, mood normal. [] Current Patient Data Vital Signs Vital Signs Date Time Temp Pulse Resp B/P (MAP) Pulse Ox O2 Delivery O2 Flow Rate FiO2 09/27/16 10:43 97.8 85 18 125/72 (89) 97 Room Air 97.8 Lab Values Laboratory Tests Test 09/27/16 11:05 White Blood Count 6.5 x10^3/uL (4.0-11.0) Red Blood Count 3.32 x10^6/uL (3.50-5.40) L Hemoglobin 10.5 g/dL (12.0-15.5) L Hematocrit 32.0 % (36.0-47.0) L Mean Corpuscular Volume 97 fL (79-100) Mean Corpuscular Hemoglobin 32 pg (25-35) Mean Corpuscular Hemoglobin Concent 33 g/dL (31-37) Red Cell Distribution Width 13.7 % (11.5-14.5) Platelet Count 156 x10^3/uL (140-400) Neutrophils (%) (Auto) 80 % (31-73) H Lymphocytes (%) (Auto) 9 % (24-48) L Monocytes (%) (Auto) 9 % (0-9) Eosinophils (%) (Auto) 2 % (0-3) Basophils (%) (Auto) 1 % (0-3) Neutrophils # (Auto) 5.2 x10^3uL (1.8-7.7) Lymphocytes # (Auto) 0.6 x10^3/uL (1.0-4.8) L Monocytes # (Auto) 0.6 x10^3/uL (0.0-1.1) Eosinophils # (Auto) 0.1 x10^3/uL (0.0-0.7) Basophils # (Auto) 0.1 x10^3/uL (0.0-0.2) Sodium Level 133 mmol/L (136-145) L Potassium Level 3.8 mmol/L (3.5-5.1) Chloride Level 94 mmol/L (98-107) L Carbon Dioxide Level 29 mmol/L (21-32) Anion Gap 10 (6-14) Blood Urea Nitrogen 32 mg/dL (7-20) H Creatinine 5.1 mg/dL (0.6-1.0) H Estimated GFR (Cockcroft-Gault) 10.4 BUN/Creatinine Ratio 6 (6-20) Glucose Level 381 mg/dL (70-99) H Calcium Level 8.6 mg/dL (8.5-10.1) Magnesium Level 2.0 mg/dL (1.8-2.4) Total Bilirubin 0.3 mg/dL (0.2-1.0) Aspartate Amino Transferase (AST) 12 U/L (15-37) L Alanine Aminotransferase (ALT) 24 U/L (14-59) Alkaline Phosphatase 213 U/L (46-116) H Total Protein 7.5 g/dL (6.4-8.2) Albumin 3.3 g/dL (3.4-5.0) L Albumin/Globulin Ratio 0.8 (1.0-1.7) L Laboratory Tests 09/27/16 11:05 Laboratory Tests 09/27/16 11:05 EKG EKG Sinus rhythm at 84 beats per minutes with normal axis no obvious ST elevation or depression and normal T waves. Radiology/Procedures Radiology/Procedures [] Course & Med Decision Making Course & Med Decision Making Patient is back to baseline and her blood pressure is 120s over 60s. She will likely be orthostatic when she sits up so told her to take it easy baby drink slightly more water than usual and come back if she has any weakness dizziness or other general concerns. Dragon Disclaimer Dragon Disclaimer This electronic medical record was generated, in whole or in part, using a voice recognition dictation system. Departure Departure Impression: Primary Impression: Hypotension Additional Impression: Dizziness Disposition: 01 HOME, SELF-CARE Condition: STABLE Referrals: UNKNOWN PCP NAME (PCP) Patient Instructions: Hypotension Problem Qualifiers Primary Impression: Hypotension Hypotension type: hemodialysis-associated hypotension Qualified Codes: I95.3 - Hypotension of hemodialysis JEY,MADY M DO Sep 27, 2016 12:05
--- NOTE | 2016-09-27 14:05 | EKG ---
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
== END 2016-09-27 12:20 | disposition home or self-care (01) ==
LOC: ER 10:43
DX: I95.3 Hypotension of hemodialysis (principal); R42 Dizziness and giddiness; R25.2 Cramp and spasm
CPT/HCPCS: 36415; 80053; 83735; 85025; 93005; 99285-25

== ENCOUNTER 2016-10-09 12:02 | Emergency (ER) | payer OTHER ==
[~2016-10-09] VITALS: Ht 157.5 cm; Wt 140.6 kg
--- NOTE | 2016-10-09 12:41 | PHYS DOC ---
Past Medical History Past Medical History: A-Fib, Arrhythmia, Constipation, Diabetes-Type II, High Cholesterol, Hypertension, Hypothyroid, Renal Failure Past Surgical History: , Tonsillectomy, Other Additional Past Surgical Histo: AV fistula(R ARM/L ARM), SHUNT(R CHEST/L CHEST) Alcohol Use: None Drug Use: None Adult General Chief Complaint Chief Complaint: SHORTNESS OF BREATH HPI HPI Patient is a 61 year old female who presents with increased edema, weakness and shortness of breath. Pt presents from dialysis after completing dialysis. She states she has not missed any dialysis and reported low blood pressure but EMS reported normal pressures. Pt denies cough, fevers, or chest pain. Pt thinks her potassium may be abnormal because she's felt like this before with abnormal potassium. Taking home meds as prescribed. denies nausea/vomiting. Pt does not make urine. Denies abdominal pain Review of Systems Review of Systems Constitutional: Denies fever or chills [] Eyes: Denies change in visual acuity, redness, or eye pain [] HENT: Denies nasal congestion or sore throat [] Respiratory: Denies cough or shortness of breath [] Cardiovascular: denies chest pain, reports increased lower extremity and abdominal edema GI: Denies abdominal pain, nausea, vomiting, bloody stools or diarrhea [] Musculoskeletal: Denies back pain or joint pain [] Integument: Denies rash or skin lesions [] Neurologic: Denies headache, focal weakness or sensory changes [] Allergies Allergies Allergies Coded Allergies Type Severity Reaction Last Updated Verified I S O L A T I O N *CONTACT* Allergy Unknown 06/27/16 Yes No Known Medication Allergies Allergy Unknown 06/27/16 Yes Physical Exam Physical Exam Constitutional: Well developed, well nourished, no acute distress, non-toxic appearance. obese HENT: Normocephalic, atraumatic, bilateral external ears normal, oropharynx moist, no oral exudates, nose normal. [] Eyes: PERRLA, EOMI, conjunctiva normal, no discharge. [] Neck: Normal range of motion, no tenderness, supple, no stridor. [] Cardiovascular:Heart rate regular with regular rhythm, no murmur [] Lungs & Thorax: Bilateral breath sounds clear to auscultation , no wheeze, dialysis catheter in left chest without active drainage. Abdomen: Bowel sounds normal, soft, no tenderness, protuberant Skin: Warm, dry, no erythema, no rash. [] Back: No tenderness, no CVA tenderness. [] Extremities: No tenderness, no cyanosis, no clubbing, ROM intact, 2+ bilateral LE edema Neurologic: Alert and oriented X 3, normal motor function, normal sensory function, no focal deficits noted. [] Psychologic: Affect normal, judgement normal, mood normal. [] Current Patient Data Vital Signs Vital Signs Date Time Temp Pulse Resp B/P (MAP) Pulse Ox O2 Delivery O2 Flow Rate FiO2 10/09/16 14:00 85 12 110/42 (64) 95 Room Air 10/09/16 12:02 97.8 97.8 Lab Values Laboratory Tests Test 10/09/16 12:19 10/09/16 12:40 Troponin I Quantitative < 0.017 ng/mL (0.000-0.055) White Blood Count 8.3 x10^3/uL (4.0-11.0) Red Blood Count 3.41 x10^6/uL (3.50-5.40) L Hemoglobin 10.7 g/dL (12.0-15.5) L Hematocrit 32.4 % (36.0-47.0) L Mean Corpuscular Volume 95 fL (79-100) Mean Corpuscular Hemoglobin 31 pg (25-35) Mean Corpuscular Hemoglobin Concent 33 g/dL (31-37) Red Cell Distribution Width 13.3 % (11.5-14.5) Platelet Count 196 x10^3/uL (140-400) Neutrophils (%) (Auto) 81 % (31-73) H Lymphocytes (%) (Auto) 8 % (24-48) L Monocytes (%) (Auto) 7 % (0-9) Eosinophils (%) (Auto) 3 % (0-3) Basophils (%) (Auto) 1 % (0-3) Neutrophils # (Auto) 6.8 x10^3uL (1.8-7.7) Lymphocytes # (Auto) 0.7 x10^3/uL (1.0-4.8) L Monocytes # (Auto) 0.6 x10^3/uL (0.0-1.1) Eosinophils # (Auto) 0.2 x10^3/uL (0.0-0.7) Basophils # (Auto) 0.1 x10^3/uL (0.0-0.2) Sodium Level 134 mmol/L (136-145) L Potassium Level 3.9 mmol/L (3.5-5.1) Chloride Level 95 mmol/L (98-107) L Carbon Dioxide Level 32 mmol/L (21-32) Anion Gap 7 (6-14) Blood Urea Nitrogen 27 mg/dL (7-20) H Creatinine 5.0 mg/dL (0.6-1.0) H Estimated GFR (Cockcroft-Gault) 10.6 BUN/Creatinine Ratio 5 (6-20) L Glucose Level 331 mg/dL (70-99) H Calcium Level 8.8 mg/dL (8.5-10.1) Magnesium Level 2.0 mg/dL (1.8-2.4) Total Bilirubin 0.2 mg/dL (0.2-1.0) Aspartate Amino Transferase (AST) 19 U/L (15-37) Alanine Aminotransferase (ALT) 32 U/L (14-59) Alkaline Phosphatase 198 U/L (46-116) H Total Protein 7.7 g/dL (6.4-8.2) Albumin 3.4 g/dL (3.4-5.0) Albumin/Globulin Ratio 0.8 (1.0-1.7) L Laboratory Tests 10/09/16 12:40 Laboratory Tests 10/09/16 12:40 EKG EKG 81bpm, normal axis, QTC 477, no St elevation or depression, T waves nonischemic. Interpreted by me.[] Radiology/Procedures Radiology/Procedures CXR: Impression: Borderline cardiomegaly with mild central vascular congestion. Course & Med Decision Making Course & Med Decision Making Pertinent Labs and Imaging studies reviewed. (See chart for details) No acute findings on ED workup, discussed with Dr. Kaiser plan to discharge. Pt to continue dialysis as planned. Dragon Disclaimer Dragon Disclaimer This electronic medical record was generated, in whole or in part, using a voice recognition dictation system. Departure Departure Impression: Primary Impression: Weakness Disposition: 01 HOME, SELF-CARE Condition: STABLE Referrals: UNKNOWN PCP NAME (PCP) ZACH TOBIAS MD Oct 09, 2016 12:41
[2016-10-09 12:46] LABS: BASO # 0.1 x10^3/uL (0.0-0.2); BASO % 1 % (0-3); EOS % 3 % (0-3); HEMATOCRIT 32.4 % (36.0-47.0); HEMOGLOBIN 10.7 g/dL (12.0-15.5); LYMPH # 0.7 x10^3/uL (1.0-4.8); LYMPH % 8 % (24-48); MEAN CORPUSCULAR HEMOGLOBIN 31 pg (25-35); MEAN CORPUSCULAR HGB CONC 33 g/dL (31-37); MEAN CORPUSCULAR VOLUME 95 fL (79-100); MONO % 7 % (0-9); NEUT % 81 % (31-73); PLATELET COUNT 196 x10^3/uL (140-400); RED BLOOD COUNT 3.41 x10^6/uL (3.50-5.40); RED CELL DISTRIBUTION WIDTH 13.3 % (11.5-14.5); WHITE BLOOD COUNT 8.3 x10^3/uL (4.0-11.0)
[2016-10-09 12:52] LABS: CALCIUM 8.8 mg/dL (8.5-10.1); GFR 10.6; POTASSIUM 3.9 mmol/L (3.5-5.1)
--- NOTE | 2016-10-09 12:54 | RAD ---
Exam performed: One view chest. History: Shortness of air. Date of service: 10/09/16. Comparison: One view chest from 08/29/15. Single AP upright portable view chest findings: Study somewhat limited due to poor inspiratory effort. Heart size is within limits of normal for the degree of inspiration. Mild central vascular congestion. Atheromatous calcification of the aortic knob. Left-sided dialysis type catheter is noted. Lungs are well expanded and clear. No focal infiltrates, effusion or pneumothorax seen. Bones are normal Impression: Borderline cardiomegaly with mild central vascular congestion.
[2016-10-09 12:58] LABS: ALBUMIN 3.4 g/dL (3.4-5.0); ALBUMIN/GLOBULIN RATIO 0.8 (1.0-1.7); TOTAL BILIRUBIN 0.2 mg/dL (0.2-1.0); TOTAL PROTEIN 7.7 g/dL (6.4-8.2)
--- NOTE | 2016-10-09 13:10 | EKG ---
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
[2016-10-09 14:00] VITALS: BP 110/42
== END 2016-10-09 14:14 | disposition home or self-care (01) ==
LOC: ER 12:02
DX: R53.1 Weakness (principal); R60.9 Edema, unspecified; R06.02 Shortness of breath; E78.00 Pure hypercholesterolemia, unspecified; I12.9 Hypertensive chronic kidney disease with stage 1 through stage 4 chronic kidney disease, or unspecified chronic kidney disease; E11.22 Type 2 diabetes mellitus with diabetic chronic kidney disease; N18.9 Chronic kidney disease, unspecified; Z94.0 Kidney transplant status; I48.91 Unspecified atrial fibrillation; E03.9 Hypothyroidism, unspecified; Z91.041 Radiographic dye allergy status
CPT/HCPCS: 36415; 71010; 80053; 83735; 84484; 85025; 93005; 99285-25

== ENCOUNTER 2017-03-26 17:32 | Inpatient (IN) | payer OTHER ==
[2017-03-26 17:54] LABS: ADD MAN DIFF? NO
[2017-03-26 17:56] LABS: AGAP ISTAT 15 mmol/L (6-14); BUN ISTAT 19 mg/dL (8-26); CHLORIDE ISTAT 99 mmol/L (98-110); CREATININE ISTAT 4.5 mg/dL (0.5-1.4); GLUCOSE ISTAT 397 mg/dL (70-99); HEMATOCRIT ISTAT 26 % (36-40); HEMOGLOBIN ISTAT 8.8 g/dL (12-15); ION CA ISTAT 0.95 mmol/L (1.13-1.32); POTASSIUM ISTAT 5.8 mmol/L (3.5-5.0); SODIUM ISTAT 133 mmol/L (135-145); TOT CO2 ISTAT 26 mmol/L (23-32)
[2017-03-26 17:57] LABS: BASO # 0.1 x10^3/uL (0.0-0.2); BASO % 1 % (0-3); EOS # 0.2 x10^3/uL (0.0-0.7); EOS % 2 % (0-3); HEMATOCRIT 26.7 % (36.0-47.0); HEMOGLOBIN 8.5 g/dL (12.0-15.5); LYMPH # 0.8 x10^3/uL (1.0-4.8); LYMPH % 11 % (24-48); MEAN CORPUSCULAR HEMOGLOBIN 30 pg (25-35); MEAN CORPUSCULAR HGB CONC 32 g/dL (31-37); MEAN CORPUSCULAR VOLUME 94 fL (79-100); MONO # 0.5 x10^3/uL (0.0-1.1); MONO % 7 % (0-9); NEUT # 5.7 x10^3uL (1.8-7.7); NEUT % 79 % (31-73); PLATELET COUNT 249 x10^3/uL (140-400); RED BLOOD COUNT 2.85 x10^6/uL (3.50-5.40); WHITE BLOOD COUNT 7.2 x10^3/uL (4.0-11.0)
[2017-03-26 18:07] LABS: INR 1.1 (0.8-1.1); PARTIAL THROMBOPLASTIN TIME 29 SEC (24-38); PROTHROMBIN TIME PATIENT 13.2 SEC (11.7-14.0)
[2017-03-26 18:34] LABS: ANION GAP 12 (6-14); BLOOD UREA NITROGEN 16 mg/dL (7-20); BUN/CREATININE RATIO 4 (6-20); CALCIUM 8.2 mg/dL (8.5-10.1); CARBON DIOXIDE 25 mmol/L (21-32); CHLORIDE 99 mmol/L (98-107); CREATININE 4.4 mg/dL (0.6-1.0); GFR 12.3; GLUCOSE 392 mg/dL (70-99); POTASSIUM 3.6 mmol/L (3.5-5.1); SODIUM 136 mmol/L (136-145)
[2017-03-26 18:39] LABS: ALBUMIN 2.4 g/dL (3.4-5.0); ALBUMIN/GLOBULIN RATIO 0.6 (1.0-1.7); ALK PHOS 174 U/L (46-116); ALT (SGPT) 22 U/L (14-59); AST (SGOT) 23 U/L (15-37); TOTAL BILIRUBIN 0.2 mg/dL (0.2-1.0); TOTAL PROTEIN 6.2 g/dL (6.4-8.2)
[2017-03-26] MEDS ORDERED: IOHEXOL 300 MG/ML 100ML VIAL. ×2 (20:02→20:05)
[2017-03-26] MEDS ORDERED: LIDOCAINE WITH 8.4% SOD BICARB 3 ML DISP.SYRIN. ×2 (20:02→22:40)
[2017-03-26 20:09] LABS: AGAP ISTAT 18 mmol/L (6-14); BUN ISTAT 15 mg/dL (8-26); CHLORIDE ISTAT 100 mmol/L (98-110); CREATININE ISTAT 4.3 mg/dL (0.5-1.4); GLUCOSE ISTAT 413 mg/dL (70-99); HEMATOCRIT ISTAT 29 % (36-40); HEMOGLOBIN ISTAT 9.9 g/dL (12-15); ION CA ISTAT 1.01 mmol/L (1.13-1.32); SODIUM ISTAT 136 mmol/L (135-145); TOT CO2 ISTAT 24 mmol/L (23-32)
[2017-03-26] MEDS ORDERED: ONDANSETRON PF 4 MG/2 ML VIAL. (20:30)
[2017-03-26] MEDS: NOREPINEPHRIN PREMIX 250 ML IV (20:37)
[2017-03-26 20:53] LABS: FECAL OB PT POSITIVE (NEG); NEG OBC FOB NEG; POS OBC FOB POS
[2017-03-26 21:03] LABS: IMMEDIATE SPIN CROSSMATCH 1 7
[2017-03-26] MEDS ORDERED: fentaNYL PF VIAL 100 MCG/2 ML VIAL (22:09)
[2017-03-26] MEDS ORDERED: GELATIN SPONGE SIZE 12-7MM SPONGE. (22:26)
[2017-03-26] MEDS: ONDANSETRON PF 4 MG/2 ML VIAL. IV (22:49)
[2017-03-26] MEDS: fentaNYL PF VIAL 100 MCG/2 ML VIAL IV (22:50)
[2017-03-26] MEDS: LIDOCAINE WITH 8.4% SOD BICARB 3 ML DISP.SYRIN. IJ (22:51)
[2017-03-26] MEDS: IOHEXOL 300 MG/ML 100ML VIAL. IART (22:51)
[2017-03-27] MEDS ORDERED: traMADol 50 MG TABLET PO (00:30)
[2017-03-27] MEDS: ONDANSETRON PF 4 MG/2 ML VIAL. IV ×2 (00:46→09:47)
[2017-03-27] MEDS: MORPHINE SULFATE 2 MG/ML DISP.SYRIN. IV ×2 (00:47→04:52)
[2017-03-27] MEDS: IV NORMAL SALINE 1000ML BAG 1,000 ML IV ×3 (00:47→20:01)
[2017-03-27] MEDS: INSULIN DETEMIR 300 UNITS/3 ML INSULN.PEN. SQ ×2 (01:18→21:02)
[2017-03-27] MEDS ORDERED: LIDOCAINE 1% PF 2 ML VIAL. ×2 (03:19→03:20)
[2017-03-27] MEDS: LEVOTHYROXINE 88 MCG TABLET PO (06:06)
[2017-03-27] MEDS: CALCIUM CARBONATE 500 MG TAB.CHEW PO (08:00)
[2017-03-27] MEDS: LUBIPROSTONE 8 MCG CAPSULE PO ×2 (08:00→17:00)
[2017-03-27] MEDS: INSULIN ASPART 300 UNITS/3 ML INSULN.PEN SQ ×10 (08:00→21:03)
[2017-03-27 08:32] LABS: POC GLUCOSE 451 mg/dL (70-99)
[2017-03-27] MEDS ORDERED: ASPIRIN ENTERIC COATED 81 MG TABLET.DR. PO (09:00)
[2017-03-27] MEDS ORDERED: FLUCONAZOLE 100 MG TABLET. PO (09:00)
[2017-03-27] MEDS: FERROUS SULFATE 325 MG TABLET. PO (09:00)
[2017-03-27 09:08] LABS: HEMATOCRIT 25.7 % (36.0-47.0); HEMOGLOBIN 8.2 g/dL (12.0-15.5); MEAN CORPUSCULAR HEMOGLOBIN 29 pg (25-35); MEAN CORPUSCULAR HGB CONC 32 g/dL (31-37); MEAN CORPUSCULAR VOLUME 91 fL (79-100); PLATELET COUNT 198 x10^3/uL (140-400); RED BLOOD COUNT 2.83 x10^6/uL (3.50-5.40); RED CELL DISTRIBUTION WIDTH 15.7 % (11.5-14.5); WHITE BLOOD COUNT 11.7 x10^3/uL (4.0-11.0)
[2017-03-27 09:22] LABS: PHOSPHORUS 5.7 mg/dL (2.6-4.7)
[2017-03-27 09:26] LABS: ALBUMIN 2.4 g/dL (3.4-5.0); ALBUMIN/GLOBULIN RATIO 0.7 (1.0-1.7); ALK PHOS 138 U/L (46-116); ALT (SGPT) 27 U/L (14-59); ANION GAP 12 (6-14); AST (SGOT) 14 U/L (15-37); BLOOD UREA NITROGEN 22 mg/dL (7-20); BUN/CREATININE RATIO 4 (6-20); CALCIUM 7.9 mg/dL (8.5-10.1); CARBON DIOXIDE 23 mmol/L (21-32); CHLORIDE 99 mmol/L (98-107); CREATININE 5.1 mg/dL (0.6-1.0); GFR 10.4; INR 1.1 (0.8-1.1); MAGNESIUM 1.7 mg/dL (1.8-2.4); PARTIAL THROMBOPLASTIN TIME 31 SEC (24-38); POTASSIUM 4.5 mmol/L (3.5-5.1); PROTHROMBIN TIME PATIENT 13.4 SEC (11.7-14.0); SODIUM 134 mmol/L (136-145); TOTAL BILIRUBIN 0.3 mg/dL (0.2-1.0); TOTAL PROTEIN 5.7 g/dL (6.4-8.2)
[2017-03-27 09:37] LABS: GLUCOSE 542 mg/dL (70-99)
[2017-03-27] MEDS: NYSTATIN TOPICAL POWDER 15GM BOTTLE. TP ×2 (09:51→21:03)
[2017-03-27] MEDS: FLUCONAZOLE 100MG/50ML PREMIX 50 ML IV (10:29)
[2017-03-27] MEDS: INSULIN REGULAR 100 UNIT/ML 10ML VIAL. IV ×3 (10:36→15:37)
[2017-03-27 13:04] LABS: POC GLUCOSE 466 mg/dL (70-99)
[2017-03-27] MEDS: PANTOPRAZOLE 40 MG TABLET.DR. PO (13:13)
[2017-03-27] MEDS: AMIODARONE HCL 200 MG TABLET. PO (13:13)
[2017-03-27] MEDS: HYDROcodone/APAP 5/325MG 1 TAB TABLET PO (14:47)
[2017-03-27 14:54] LABS: POC GLUCOSE 387 mg/dL (70-99)
[2017-03-27 16:32] LABS: POC GLUCOSE 317 mg/dL (70-99)
[2017-03-27 18:12] LABS: POC GLUCOSE 268 mg/dL (70-99)
[2017-03-27] MEDS: ATORVASTATIN CALCIUM 40 MG TABLET. PO (21:01)
[2017-03-27] MEDS: AMITRIPTYLINE HCL 50 MG TABLET PO (21:01)
[2017-03-27 21:07] LABS: POC GLUCOSE 206 mg/dL (70-99)
[2017-03-27 21:10] LABS: MRSA BY PCR Positive (Negative)
[2017-03-27] MEDS: DARBEPOETIN ALFA 60 MCG/0.3 ML DISP.SYRIN. SQ (21:53)
[2017-03-28] MEDS: LEVOTHYROXINE 88 MCG TABLET PO (05:43)
[2017-03-28] MEDS: IV NORMAL SALINE 1000ML BAG 1,000 ML IV ×2 (05:43→15:50)
[2017-03-28 05:57] LABS: MEAN CORPUSCULAR HEMOGLOBIN 29 pg (25-35); MEAN CORPUSCULAR HGB CONC 33 g/dL (31-37); MEAN CORPUSCULAR VOLUME 90 fL (79-100); PLATELET COUNT 186 x10^3/uL (140-400); RED BLOOD COUNT 2.28 x10^6/uL (3.50-5.40); RED CELL DISTRIBUTION WIDTH 15.6 % (11.5-14.5); WHITE BLOOD COUNT 14.8 x10^3/uL (4.0-11.0)
[2017-03-28 06:07] LABS: HEMATOCRIT 20.6 % (36.0-47.0); HEMOGLOBIN 6.7 g/dL (12.0-15.5)
[2017-03-28 06:31] LABS: ALBUMIN 2.3 g/dL (3.4-5.0); ALBUMIN/GLOBULIN RATIO 0.9 (1.0-1.7); ALK PHOS 124 U/L (46-116); ALT (SGPT) 16 U/L (14-59); ANION GAP 9 (6-14); AST (SGOT) 10 U/L (15-37); BLOOD UREA NITROGEN 28 mg/dL (7-20); BUN/CREATININE RATIO 4 (6-20); CALCIUM 7.7 mg/dL (8.5-10.1); CARBON DIOXIDE 26 mmol/L (21-32); CHLORIDE 102 mmol/L (98-107); CREATININE 6.3 mg/dL (0.6-1.0); GFR 8.1; GLUCOSE 245 mg/dL (70-99); POTASSIUM 3.9 mmol/L (3.5-5.1); SODIUM 137 mmol/L (136-145); TOTAL BILIRUBIN 0.2 mg/dL (0.2-1.0)
[2017-03-28] MEDS: INSULIN ASPART 300 UNITS/3 ML INSULN.PEN SQ ×6 (07:30→20:32)
[2017-03-28] MEDS ORDERED: ALBUMIN HUMAN 25% 200 ML IV (09:00)
[2017-03-28] MEDS ORDERED: IV NORMAL SALINE 1000ML BAG 1,000 ML IV (09:00)
[2017-03-28] MEDS ORDERED: 0.9 % SODIUM CHLORIDE 10 ML DISP.SYRIN. IV ×2 (10:00)
[2017-03-28] MEDS ORDERED: DIALYSIS PATIENT. MC ×2 (10:00)
[2017-03-28 10:13] LABS: IMMEDIATE SPIN CROSSMATCH 1
[2017-03-28] MEDS: FLUCONAZOLE 100MG/50ML PREMIX 50 ML IV (15:46)
[2017-03-28] MEDS: LUBIPROSTONE 8 MCG CAPSULE PO ×2 (15:46→16:42)
[2017-03-28] MEDS: AMIODARONE HCL 200 MG TABLET. PO (15:46)
[2017-03-28] MEDS: PANTOPRAZOLE 40 MG TABLET.DR. PO (15:46)
[2017-03-28] MEDS: CALCIUM CARBONATE 500 MG TAB.CHEW PO (15:46)
[2017-03-28] MEDS: NYSTATIN TOPICAL POWDER 15GM BOTTLE. TP ×2 (15:47→20:30)
[2017-03-28] MEDS: FERROUS SULFATE 325 MG TABLET. PO (15:47)
[2017-03-28 16:34] LABS: POC GLUCOSE 205 mg/dL (70-99)
[2017-03-28 16:42] LABS: HEMATOCRIT 23.8 % (36.0-47.0); HEMOGLOBIN 7.8 g/dL (12.0-15.5); MEAN CORPUSCULAR HEMOGLOBIN 29 pg (25-35); MEAN CORPUSCULAR HGB CONC 33 g/dL (31-37); MEAN CORPUSCULAR VOLUME 88 fL (79-100); PLATELET COUNT 179 x10^3/uL (140-400); RED BLOOD COUNT 2.71 x10^6/uL (3.50-5.40); RED CELL DISTRIBUTION WIDTH 15.7 % (11.5-14.5); WHITE BLOOD COUNT 21.3 x10^3/uL (4.0-11.0)
[2017-03-28 20:02] LABS: POC GLUCOSE 190 mg/dL (70-99)
[2017-03-28] MEDS: AMITRIPTYLINE HCL 50 MG TABLET PO (20:30)
[2017-03-28] MEDS: ATORVASTATIN CALCIUM 40 MG TABLET. PO (20:30)
[2017-03-28] MEDS: INSULIN DETEMIR 300 UNITS/3 ML INSULN.PEN. SQ (20:31)
[2017-03-28 20:53] LABS: LACTIC ACID 1.8 mmol/L (0.4-2.0)
[2017-03-28 21:39] LABS: BASE EXCESS ABG 1 mmol/L (-3-3); HCO3 ABG 26 mmol/L (21-28); PCO2 ABG 41 mmHg (35-46); PH ABG 7.41 (7.35-7.45); PO2 ABG 125 mmHg (65-108); SAT O2 ABG 98 % (92-99)
[2017-03-28 21:51] LABS: FIO2 ABG 36
[2017-03-29 00:10] LABS: HEP B SURFACE ABDY Non Reactive (.)
[2017-03-29] MEDS: IV NORMAL SALINE 1000ML BAG 1,000 ML IV ×2 (02:45→12:24)
[2017-03-29] MEDS: ONDANSETRON PF 4 MG/2 ML VIAL. IV (03:26)
[2017-03-29 06:09] LABS: MEAN CORPUSCULAR HEMOGLOBIN 30 pg (25-35); MEAN CORPUSCULAR HGB CONC 34 g/dL (31-37); MEAN CORPUSCULAR VOLUME 89 fL (79-100); PLATELET COUNT 138 x10^3/uL (140-400); RED BLOOD COUNT 1.91 x10^6/uL (3.50-5.40); RED CELL DISTRIBUTION WIDTH 15.7 % (11.5-14.5); WHITE BLOOD COUNT 15.2 x10^3/uL (4.0-11.0)
[2017-03-29] MEDS: LEVOTHYROXINE 88 MCG TABLET PO (06:19)
[2017-03-29 06:29] LABS: ANION GAP 7 (6-14); BLOOD UREA NITROGEN 20 mg/dL (7-20); CALCIUM 8.1 mg/dL (8.5-10.1); CARBON DIOXIDE 28 mmol/L (21-32); CHLORIDE 103 mmol/L (98-107); CREATININE 3.9 mg/dL (0.6-1.0); GFR 14.1; GLUCOSE 146 mg/dL (70-99); POTASSIUM 4.1 mmol/L (3.5-5.1); SODIUM 138 mmol/L (136-145)
[2017-03-29 06:41] LABS: HEMOGLOBIN 5.7 g/dL (12.0-15.5)
[2017-03-29] MEDS: INSULIN ASPART 300 UNITS/3 ML INSULN.PEN SQ ×7 (07:30→21:45)
[2017-03-29] MEDS: PANTOPRAZOLE 40 MG TABLET.DR. PO (07:30)
[2017-03-29] MEDS: LUBIPROSTONE 8 MCG CAPSULE PO ×2 (08:00→17:00)
[2017-03-29] MEDS: CALCIUM CARBONATE 500 MG TAB.CHEW PO (08:00)
[2017-03-29] MEDS: FERROUS SULFATE 325 MG TABLET. PO (08:42)
[2017-03-29] MEDS: AMIODARONE HCL 200 MG TABLET. PO (08:42)
[2017-03-29] MEDS: NYSTATIN TOPICAL POWDER 15GM BOTTLE. TP ×2 (12:24→21:46)
[2017-03-29] MEDS: PIPERACILLIN/TAZOBACTAM 2.25 GM in IV NORMAL SALINE 50ML 50 ML IV ×3 (12:24→22:24)
[2017-03-29] MEDS: FLUCONAZOLE 100MG/50ML PREMIX 50 ML IV (12:24)
[2017-03-29] MEDS: IRON SUCROSE COMPLEX 500 MG in IV NORMAL SALINE 250ML 250 ML IV (12:31)
[2017-03-29 12:35] LABS: POC GLUCOSE 128 mg/dL (70-99)
[2017-03-29] MEDS: PANTOPRAZOLE IV PUSH 40 MG VIAL. IVP (12:37)
[2017-03-29 18:25] LABS: POC GLUCOSE 146 mg/dL (70-99)
[2017-03-29] MEDS: ATORVASTATIN CALCIUM 40 MG TABLET. PO (21:39)
[2017-03-29] MEDS: AMITRIPTYLINE HCL 50 MG TABLET PO (21:39)
[2017-03-29] MEDS: INSULIN DETEMIR 300 UNITS/3 ML INSULN.PEN. SQ (21:45)
[2017-03-29 22:16] LABS: POC GLUCOSE 158 mg/dL (70-99)
[2017-03-30] MEDS: IV NORMAL SALINE 1000ML BAG 1,000 ML IV ×2 (04:24→21:27)
[2017-03-30] MEDS: PIPERACILLIN/TAZOBACTAM 2.25 GM in IV NORMAL SALINE 50ML 50 ML IV ×3 (06:25→21:27)
[2017-03-30] MEDS: LEVOTHYROXINE 88 MCG TABLET PO (06:25)
[2017-03-30 06:30] LABS: HEMATOCRIT 25.3 % (36.0-47.0); HEMOGLOBIN 8.4 g/dL (12.0-15.5); MEAN CORPUSCULAR HEMOGLOBIN 29 pg (25-35); MEAN CORPUSCULAR HGB CONC 33 g/dL (31-37); MEAN CORPUSCULAR VOLUME 86 fL (79-100); PLATELET COUNT 181 x10^3/uL (140-400); RED BLOOD COUNT 2.94 x10^6/uL (3.50-5.40); RED CELL DISTRIBUTION WIDTH 16.4 % (11.5-14.5); WHITE BLOOD COUNT 18.1 x10^3/uL (4.0-11.0)
[2017-03-30 06:46] LABS: ANION GAP 10 (6-14); BLOOD UREA NITROGEN 40 mg/dL (7-20); CALCIUM 8.3 mg/dL (8.5-10.1); CARBON DIOXIDE 26 mmol/L (21-32); CHLORIDE 105 mmol/L (98-107); CREATININE 5.5 mg/dL (0.6-1.0); GFR 9.5; GLUCOSE 85 mg/dL (70-99); POTASSIUM 4.2 mmol/L (3.5-5.1); SODIUM 141 mmol/L (136-145)
[2017-03-30] MEDS: INSULIN ASPART 300 UNITS/3 ML INSULN.PEN SQ ×7 (07:30→21:00)
[2017-03-30] MEDS: AMIODARONE HCL 200 MG TABLET. PO (09:00)
[2017-03-30 09:03] LABS: POC GLUCOSE 63 mg/dL (70-99)
[2017-03-30] MEDS ORDERED: DIALYSIS PATIENT. MC ×2 (11:45)
[2017-03-30] MEDS: LUBIPROSTONE 8 MCG CAPSULE PO ×2 (13:44→18:16)
[2017-03-30] MEDS: FERROUS SULFATE 325 MG TABLET. PO (13:44)
[2017-03-30] MEDS: FLUCONAZOLE 100MG/50ML PREMIX 50 ML IV (13:44)
[2017-03-30] MEDS: PANTOPRAZOLE IV PUSH 40 MG VIAL. IVP (13:44)
[2017-03-30] MEDS: NYSTATIN TOPICAL POWDER 15GM BOTTLE. TP ×2 (13:46→21:27)
[2017-03-30] MEDS: CALCIUM CARBONATE 500 MG TAB.CHEW PO (13:51)
[2017-03-30 13:54] LABS: POC GLUCOSE 53 mg/dL (70-99)
[2017-03-30 18:21] LABS: POC GLUCOSE 91 mg/dL (70-99)
[2017-03-30] MEDS: ATORVASTATIN CALCIUM 40 MG TABLET. PO (21:27)
[2017-03-30] MEDS: AMITRIPTYLINE HCL 50 MG TABLET PO (21:27)
[2017-03-30] MEDS: INSULIN DETEMIR 300 UNITS/3 ML INSULN.PEN. SQ (21:34)
[2017-03-30 21:37] LABS: POC GLUCOSE 148 mg/dL (70-99)
[2017-03-31 00:37] LABS: HEMATOCRIT 27.3 % (36.0-47.0); HEMOGLOBIN 8.9 g/dL (12.0-15.5); MEAN CORPUSCULAR HEMOGLOBIN 29 pg (25-35); MEAN CORPUSCULAR HGB CONC 33 g/dL (31-37); MEAN CORPUSCULAR VOLUME 88 fL (79-100); PLATELET COUNT 179 x10^3/uL (140-400); RED BLOOD COUNT 3.11 x10^6/uL (3.50-5.40); RED CELL DISTRIBUTION WIDTH 16.3 % (11.5-14.5); WHITE BLOOD COUNT 17.8 x10^3/uL (4.0-11.0)
[2017-03-31] MEDS: IV NORMAL SALINE 1000ML BAG 1,000 ML IV ×3 (03:30→18:56)
[2017-03-31] MEDS: LEVOTHYROXINE 88 MCG TABLET PO (06:07)
[2017-03-31] MEDS: PIPERACILLIN/TAZOBACTAM 2.25 GM in IV NORMAL SALINE 50ML 50 ML IV ×3 (06:08→21:17)
[2017-03-31] MEDS: INSULIN ASPART 300 UNITS/3 ML INSULN.PEN SQ ×7 (07:30→21:00)
[2017-03-31] MEDS: LUBIPROSTONE 8 MCG CAPSULE PO ×2 (08:00→16:44)
[2017-03-31] MEDS: PANTOPRAZOLE IV PUSH 40 MG VIAL. IVP (08:26)
[2017-03-31] MEDS: AMIODARONE HCL 200 MG TABLET. PO (08:26)
[2017-03-31] MEDS: CALCIUM CARBONATE 500 MG TAB.CHEW PO (08:26)
[2017-03-31] MEDS: NYSTATIN TOPICAL POWDER 15GM BOTTLE. TP ×2 (08:27→21:15)
[2017-03-31 08:38] LABS: POC GLUCOSE 87 mg/dL (70-99)
[2017-03-31] MEDS: FERROUS SULFATE 325 MG TABLET. PO (08:39)
[2017-03-31] MEDS: FLUCONAZOLE 100MG/50ML PREMIX 50 ML IV (09:49)
[2017-03-31] MEDS: LACTOBACILLUS RHAMNOSUS GG 1 CAPSULE. PO ×2 (12:04→21:15)
[2017-03-31 12:07] LABS: POC GLUCOSE 88 mg/dL (70-99)
[2017-03-31 17:03] LABS: POC GLUCOSE 61 mg/dL (70-99)
[2017-03-31 18:17] LABS: POC GLUCOSE 57 mg/dL (70-99)
[2017-03-31] MEDS: DEXTROSE 50% 25 GM / 50ML DISP.SYRIN. IV (18:20)
[2017-03-31] MEDS: INSULIN DETEMIR 300 UNITS/3 ML INSULN.PEN. SQ (21:00)
[2017-03-31] MEDS: ATORVASTATIN CALCIUM 40 MG TABLET. PO (21:15)
[2017-03-31] MEDS: AMITRIPTYLINE HCL 50 MG TABLET PO (21:15)
[2017-03-31 21:19] LABS: POC GLUCOSE 86 mg/dL (70-99)
[2017-03-31] MEDS: HYDROcodone/APAP 5/325MG 1 TAB TABLET PO (21:42)
[2017-04-01] MEDS: LEVOTHYROXINE 88 MCG TABLET PO (05:49)
[2017-04-01] MEDS: PIPERACILLIN/TAZOBACTAM 2.25 GM in IV NORMAL SALINE 50ML 50 ML IV ×2 (05:50→14:00)
[2017-04-01 06:17] LABS: ADD MAN DIFF? NO
[2017-04-01 06:24] LABS: BASO % 0 % (0-3); EOS # 0.5 x10^3/uL (0.0-0.7); EOS % 4 % (0-3); HEMATOCRIT 26.6 % (36.0-47.0); HEMOGLOBIN 8.6 g/dL (12.0-15.5); LYMPH # 0.4 x10^3/uL (1.0-4.8); LYMPH % 3 % (24-48); MEAN CORPUSCULAR HEMOGLOBIN 29 pg (25-35); MEAN CORPUSCULAR HGB CONC 32 g/dL (31-37); MEAN CORPUSCULAR VOLUME 88 fL (79-100); MONO # 1.1 x10^3/uL (0.0-1.1); MONO % 9 % (0-9); NEUT # 11.1 x10^3uL (1.8-7.7); NEUT % 84 % (31-73); PLATELET COUNT 218 x10^3/uL (140-400); RED BLOOD COUNT 3.02 x10^6/uL (3.50-5.40); RED CELL DISTRIBUTION WIDTH 15.9 % (11.5-14.5); WHITE BLOOD COUNT 13.2 x10^3/uL (4.0-11.0)
[2017-04-01] MEDS: INSULIN ASPART 300 UNITS/3 ML INSULN.PEN SQ ×7 (07:30→21:05)
[2017-04-01 07:41] LABS: % BANDS 8 % (0-9); % LYMPHS 5 % (24-48)
[2017-04-01 07:42] LABS: % EOS 3 % (0-5); % MONOS 6 % (0-10); % SEGS 78 % (35-66); PLT ESTIMATE ADEQUATE (ADEQUATE)
[2017-04-01 07:43] LABS: ANISOCYTOSIS SLIGHT
[2017-04-01] MEDS: FERROUS SULFATE 325 MG TABLET. PO (07:48)
[2017-04-01] MEDS: IV NORMAL SALINE 1000ML BAG 1,000 ML IV (07:48)
[2017-04-01] MEDS: LACTOBACILLUS RHAMNOSUS GG 1 CAPSULE. PO ×2 (07:48→20:44)
[2017-04-01] MEDS: CALCIUM CARBONATE 500 MG TAB.CHEW PO (07:48)
[2017-04-01] MEDS: NYSTATIN TOPICAL POWDER 15GM BOTTLE. TP ×2 (07:49→20:46)
[2017-04-01] MEDS: LUBIPROSTONE 8 MCG CAPSULE PO ×2 (07:49→17:29)
[2017-04-01] MEDS: PANTOPRAZOLE IV PUSH 40 MG VIAL. IVP (07:49)
[2017-04-01] MEDS: AMIODARONE HCL 200 MG TABLET. PO (07:49)
[2017-04-01] MEDS: FLUCONAZOLE 100MG/50ML PREMIX 50 ML IV (09:35)
[2017-04-01 11:42] LABS: POC GLUCOSE 138 mg/dL (70-99)
[2017-04-01 17:19] LABS: POC GLUCOSE 161 mg/dL (70-99)
[2017-04-01] MEDS: HYDROcodone/APAP 5/325MG 1 TAB TABLET PO ×2 (17:48→22:37)
[2017-04-01] MEDS: ATORVASTATIN CALCIUM 40 MG TABLET. PO (20:44)
[2017-04-01] MEDS: AMOXICILLIN/K CLAV 500/125MG TABLET. PO (20:45)
[2017-04-01] MEDS: AMITRIPTYLINE HCL 50 MG TABLET PO (20:45)
[2017-04-01] MEDS: INSULIN DETEMIR 300 UNITS/3 ML INSULN.PEN. SQ (20:55)
[2017-04-01 21:01] LABS: POC GLUCOSE 136 mg/dL (70-99)
[2017-04-02 04:22] LABS: ADD MAN DIFF? NO
[2017-04-02 04:26] LABS: BASO # 0.2 x10^3/uL (0.0-0.2); BASO % 1 % (0-3); EOS # 0.4 x10^3/uL (0.0-0.7); EOS % 3 % (0-3); HEMATOCRIT 26.4 % (36.0-47.0); HEMOGLOBIN 8.7 g/dL (12.0-15.5); LYMPH # 0.4 x10^3/uL (1.0-4.8); LYMPH % 3 % (24-48); MEAN CORPUSCULAR HEMOGLOBIN 30 pg (25-35); MEAN CORPUSCULAR HGB CONC 33 g/dL (31-37); MEAN CORPUSCULAR VOLUME 91 fL (79-100); MONO # 1.5 x10^3/uL (0.0-1.1); MONO % 11 % (0-9); NEUT # 11.1 x10^3uL (1.8-7.7); NEUT % 81 % (31-73); PLATELET COUNT 243 x10^3/uL (140-400); RED BLOOD COUNT 2.92 x10^6/uL (3.50-5.40); RED CELL DISTRIBUTION WIDTH 16.1 % (11.5-14.5); WHITE BLOOD COUNT 13.6 x10^3/uL (4.0-11.0)
[2017-04-02] MEDS: LEVOTHYROXINE 88 MCG TABLET PO (06:11)
[2017-04-02] MEDS: INSULIN ASPART 300 UNITS/3 ML INSULN.PEN SQ ×8 (07:30→21:00)
[2017-04-02] MEDS: CALCIUM CARBONATE 500 MG TAB.CHEW PO (08:00)
[2017-04-02 08:16] LABS: POC GLUCOSE 97 mg/dL (70-99)
[2017-04-02] MEDS: LACTOBACILLUS RHAMNOSUS GG 1 CAPSULE. PO ×2 (08:31→21:04)
[2017-04-02 08:32] LABS: POC GLUCOSE 43 mg/dL (70-99)
[2017-04-02] MEDS: FERROUS SULFATE 325 MG TABLET. PO (08:32)
[2017-04-02] MEDS: PANTOPRAZOLE 40 MG TABLET.DR. PO (08:32)
[2017-04-02] MEDS: AMOXICILLIN/K CLAV 500/125MG TABLET. PO ×2 (08:32→21:04)
[2017-04-02] MEDS: AMIODARONE HCL 200 MG TABLET. PO (08:34)
[2017-04-02] MEDS: LUBIPROSTONE 8 MCG CAPSULE PO ×2 (08:34→18:56)
[2017-04-02] MEDS: DEXTROSE ORAL GEL 15 GM TUBE. PO (09:09)
[2017-04-02] MEDS: NYSTATIN TOPICAL POWDER 15GM BOTTLE. TP ×2 (09:13→21:34)
[2017-04-02 09:35] LABS: POC GLUCOSE 44 mg/dL (70-99)
[2017-04-02 09:35] LABS: POC GLUCOSE 79 mg/dL (70-99)
[2017-04-02] MEDS: FLUCONAZOLE 100MG/50ML PREMIX 50 ML IV ×2 (10:00→11:41)
[2017-04-02] MEDS ORDERED: IV NORMAL SALINE 1000ML BAG 1,000 ML IV ×2 (11:38)
[2017-04-02] MEDS ORDERED: ACETAMINOPHEN 500 MG TABLET PO (11:45)
[2017-04-02] MEDS ORDERED: diphenhydrAMINE 50 MG/ML VIAL IV ×2 (11:45)
[2017-04-02] MEDS ORDERED: ALBUMIN HUMAN 25% 200 ML IV (11:45)
[2017-04-02] MEDS ORDERED: DIALYSIS PATIENT. MC (11:45)
[2017-04-02 11:52] LABS: POC GLUCOSE 75 mg/dL (70-99)
[2017-04-02] MEDS: INSULIN DETEMIR 300 UNITS/3 ML INSULN.PEN. SQ (21:00)
[2017-04-02] MEDS: AMITRIPTYLINE HCL 50 MG TABLET PO (21:04)
[2017-04-02] MEDS: HYDROcodone/APAP 5/325MG 1 TAB TABLET PO (21:04)
[2017-04-02] MEDS: ATORVASTATIN CALCIUM 40 MG TABLET. PO (21:04)
[2017-04-03] MEDS: LEVOTHYROXINE 88 MCG TABLET PO (06:07)
[2017-04-03] MEDS: INSULIN ASPART 300 UNITS/3 ML INSULN.PEN SQ ×7 (07:30→22:35)
[2017-04-03] MEDS: CALCIUM CARBONATE 500 MG TAB.CHEW PO (08:00)
[2017-04-03 08:27] LABS: POC GLUCOSE 87 mg/dL (70-99)
[2017-04-03] MEDS: AMOXICILLIN/K CLAV 500/125MG TABLET. PO ×2 (09:26→20:31)
[2017-04-03] MEDS: LUBIPROSTONE 8 MCG CAPSULE PO ×2 (09:26→17:39)
[2017-04-03] MEDS: PANTOPRAZOLE 40 MG TABLET.DR. PO (09:26)
[2017-04-03] MEDS: FERROUS SULFATE 325 MG TABLET. PO (09:26)
[2017-04-03] MEDS: AMIODARONE HCL 200 MG TABLET. PO (09:27)
[2017-04-03] MEDS: NYSTATIN TOPICAL POWDER 15GM BOTTLE. TP ×2 (09:28→20:33)
[2017-04-03] MEDS: HYDROcodone/APAP 5/325MG 1 TAB TABLET PO (09:39)
[2017-04-03] MEDS: FLUCONAZOLE 100MG/50ML PREMIX 50 ML IV (10:00)
[2017-04-03 12:14] LABS: POC GLUCOSE 138 mg/dL (70-99)
[2017-04-03] MEDS: LACTOBACILLUS RHAMNOSUS GG 1 CAPSULE. PO ×2 (13:55→20:31)
[2017-04-03 16:47] LABS: POC GLUCOSE 178 mg/dL (70-99)
[2017-04-03] MEDS: ATORVASTATIN CALCIUM 40 MG TABLET. PO (20:31)
[2017-04-03] MEDS: AMITRIPTYLINE HCL 50 MG TABLET PO (20:31)
[2017-04-03] MEDS: DARBEPOETIN ALFA 60 MCG/0.3 ML DISP.SYRIN. SQ (20:32)
[2017-04-03] MEDS: INSULIN DETEMIR 300 UNITS/3 ML INSULN.PEN. SQ (22:37)
[2017-04-04] MEDS: LEVOTHYROXINE 88 MCG TABLET PO (06:09)
[2017-04-04 06:32] LABS: POC GLUCOSE 217 mg/dL (70-99)
[2017-04-04] MEDS: INSULIN ASPART 300 UNITS/3 ML INSULN.PEN SQ ×7 (07:30→21:04)
[2017-04-04] MEDS: CALCIUM CARBONATE 500 MG TAB.CHEW PO (08:00)
[2017-04-04 08:21] LABS: POC GLUCOSE 133 mg/dL (70-99)
[2017-04-04] MEDS: FERROUS SULFATE 325 MG TABLET. PO (09:25)
[2017-04-04] MEDS: LUBIPROSTONE 8 MCG CAPSULE PO ×2 (09:25→18:14)
[2017-04-04] MEDS: LACTOBACILLUS RHAMNOSUS GG 1 CAPSULE. PO ×2 (09:25→21:04)
[2017-04-04] MEDS: PANTOPRAZOLE 40 MG TABLET.DR. PO (09:26)
[2017-04-04] MEDS: AMIODARONE HCL 200 MG TABLET. PO (09:26)
[2017-04-04] MEDS: AMOXICILLIN/K CLAV 500/125MG TABLET. PO ×2 (09:31→21:04)
[2017-04-04] MEDS: NYSTATIN TOPICAL POWDER 15GM BOTTLE. TP ×2 (09:31→21:04)
[2017-04-04] MEDS: FLUCONAZOLE 100MG/50ML PREMIX 50 ML IV (10:00)
[2017-04-04] MEDS ORDERED: IV NORMAL SALINE 1000ML BAG 1,000 ML IV ×2 (11:43)
[2017-04-04] MEDS ORDERED: DIALYSIS PATIENT. MC ×2 (11:45)
[2017-04-04] MEDS ORDERED: ALBUMIN HUMAN 25% 200 ML IV (11:45)
[2017-04-04] MEDS ORDERED: 0.9 % SODIUM CHLORIDE 10 ML DISP.SYRIN. IV ×2 (11:45)
[2017-04-04 17:41] LABS: POC GLUCOSE 82 mg/dL (70-99)
[2017-04-04 20:45] LABS: POC GLUCOSE 138 mg/dL (70-99)
[2017-04-04] MEDS: AMITRIPTYLINE HCL 50 MG TABLET PO (21:04)
[2017-04-04] MEDS: ATORVASTATIN CALCIUM 40 MG TABLET. PO (21:04)
[2017-04-04] MEDS: INSULIN DETEMIR 300 UNITS/3 ML INSULN.PEN. SQ (21:13)
[2017-04-05] MEDS: LEVOTHYROXINE 88 MCG TABLET PO (06:22)
[2017-04-05 06:33] LABS: POC GLUCOSE 72 mg/dL (70-99)
[2017-04-05] MEDS: INSULIN ASPART 300 UNITS/3 ML INSULN.PEN SQ ×7 (07:30→22:55)
[2017-04-05 07:58] LABS: POC GLUCOSE 72 mg/dL (70-99)
[2017-04-05 07:58] LABS: POC GLUCOSE 67 mg/dL (70-99)
[2017-04-05] MEDS: CALCIUM CARBONATE 500 MG TAB.CHEW PO ×2 (08:00→09:52)
[2017-04-05] MEDS: AMIODARONE HCL 200 MG TABLET. PO (09:51)
[2017-04-05] MEDS: PANTOPRAZOLE 40 MG TABLET.DR. PO (09:51)
[2017-04-05] MEDS: LACTOBACILLUS RHAMNOSUS GG 1 CAPSULE. PO ×2 (09:51→22:54)
[2017-04-05] MEDS: FERROUS SULFATE 325 MG TABLET. PO (09:51)
[2017-04-05] MEDS: LUBIPROSTONE 8 MCG CAPSULE PO ×2 (09:51→17:53)
[2017-04-05] MEDS: NYSTATIN TOPICAL POWDER 15GM BOTTLE. TP ×2 (09:52→22:55)
[2017-04-05] MEDS: FLUCONAZOLE 100MG/50ML PREMIX 50 ML IV ×2 (09:52→10:00)
[2017-04-05 12:12] LABS: POC GLUCOSE 136 mg/dL (70-99)
[2017-04-05] MEDS: HYDROcodone/APAP 5/325MG 1 TAB TABLET PO ×2 (13:07→22:54)
[2017-04-05 16:39] LABS: POC GLUCOSE 161 mg/dL (70-99)
[2017-04-05 21:07] LABS: POC GLUCOSE 175 mg/dL (70-99)
[2017-04-05] MEDS: AMITRIPTYLINE HCL 50 MG TABLET PO (22:52)
[2017-04-05] MEDS: ATORVASTATIN CALCIUM 40 MG TABLET. PO (22:52)
[2017-04-05] MEDS: FLUCONAZOLE 100 MG TABLET. PO (22:53)
[2017-04-05] MEDS: INSULIN DETEMIR 300 UNITS/3 ML INSULN.PEN. SQ (23:03)
[2017-04-06] MEDS: LEVOTHYROXINE 88 MCG TABLET PO (05:48)
[2017-04-06] MEDS ORDERED: ACETAMINOPHEN 500 MG TABLET PO (07:15)
[2017-04-06] MEDS ORDERED: IV NORMAL SALINE 1000ML BAG 1,000 ML IV ×2 (07:15)
[2017-04-06] MEDS ORDERED: DIALYSIS PATIENT. MC (07:15)
[2017-04-06] MEDS ORDERED: diphenhydrAMINE 50 MG/ML VIAL IV ×2 (07:15)
[2017-04-06] MEDS: INSULIN ASPART 300 UNITS/3 ML INSULN.PEN SQ ×7 (07:30→21:24)
[2017-04-06 09:48] LABS: ANION GAP 4 (6-14); BLOOD UREA NITROGEN 23 mg/dL (7-20); CALCIUM 8.3 mg/dL (8.5-10.1); CARBON DIOXIDE 34 mmol/L (21-32); CHLORIDE 98 mmol/L (98-107); CREATININE 5.4 mg/dL (0.6-1.0); GFR 9.7; GLUCOSE 156 mg/dL (70-99); POTASSIUM 3.8 mmol/L (3.5-5.1); SODIUM 136 mmol/L (136-145)
[2017-04-06 14:00] LABS: POC GLUCOSE 104 mg/dL (70-99)
[2017-04-06] MEDS: CALCIUM CARBONATE 500 MG TAB.CHEW PO (14:48)
[2017-04-06] MEDS: AMIODARONE HCL 200 MG TABLET. PO (14:48)
[2017-04-06] MEDS: LUBIPROSTONE 8 MCG CAPSULE PO ×2 (14:48→18:26)
[2017-04-06] MEDS: PANTOPRAZOLE 40 MG TABLET.DR. PO (14:48)
[2017-04-06] MEDS: FERROUS SULFATE 325 MG TABLET. PO (14:49)
[2017-04-06] MEDS: NYSTATIN TOPICAL POWDER 15GM BOTTLE. TP ×2 (14:49→21:25)
[2017-04-06] MEDS: LACTOBACILLUS RHAMNOSUS GG 1 CAPSULE. PO ×2 (14:49→21:24)
[2017-04-06 17:00] LABS: POC GLUCOSE 189 mg/dL (70-99)
[2017-04-06 20:49] LABS: POC GLUCOSE 145 mg/dL (70-99)
[2017-04-06 20:58] LABS: POC GLUCOSE 140 mg/dL (70-99)
[2017-04-06] MEDS: ATORVASTATIN CALCIUM 40 MG TABLET. PO (21:24)
[2017-04-06] MEDS: INSULIN DETEMIR 300 UNITS/3 ML INSULN.PEN. SQ (21:32)
[2017-04-06 22:19] LABS: HEP B SURFACE AG Negative (Negative)
[2017-04-07] MEDS: LEVOTHYROXINE 88 MCG TABLET PO (05:56)
[2017-04-07] MEDS: INSULIN ASPART 300 UNITS/3 ML INSULN.PEN SQ ×7 (07:30→21:00)
[2017-04-07] MEDS: CALCIUM CARBONATE 500 MG TAB.CHEW PO (08:00)
[2017-04-07 08:07] LABS: POC GLUCOSE 54 mg/dL (70-99)
[2017-04-07] MEDS: AMIODARONE HCL 200 MG TABLET. PO (08:49)
[2017-04-07] MEDS: LUBIPROSTONE 8 MCG CAPSULE PO ×2 (08:49→17:48)
[2017-04-07] MEDS: LACTOBACILLUS RHAMNOSUS GG 1 CAPSULE. PO ×2 (08:49→21:23)
[2017-04-07] MEDS: FERROUS SULFATE 325 MG TABLET. PO (08:49)
[2017-04-07] MEDS: NYSTATIN TOPICAL POWDER 15GM BOTTLE. TP ×2 (08:50→21:00)
[2017-04-07 09:12] LABS: POC GLUCOSE 73 mg/dL (70-99)
[2017-04-07] MEDS ORDERED: MORPHINE SULFATE 4 MG/ML DISP.SYRIN. IV (09:42)
[2017-04-07 16:52] LABS: POC GLUCOSE 110 mg/dL (70-99)
[2017-04-07 17:32] LABS: POC GLUCOSE 141 mg/dL (70-99)
[2017-04-07 21:01] LABS: POC GLUCOSE 110 mg/dL (70-99)
[2017-04-07] MEDS: ATORVASTATIN CALCIUM 40 MG TABLET. PO (21:23)
[2017-04-07] MEDS: INSULIN DETEMIR 300 UNITS/3 ML INSULN.PEN. SQ (21:29)
[2017-04-08] MEDS: POLYETHYLENE GLYCOL 3350 17 GM PACKET. PO ×2 (05:18→12:11)
[2017-04-08] MEDS: LEVOTHYROXINE 88 MCG TABLET PO (06:15)
[2017-04-08 06:32] LABS: POC GLUCOSE 126 mg/dL (70-99)
[2017-04-08] MEDS: INSULIN ASPART 300 UNITS/3 ML INSULN.PEN SQ ×7 (07:30→21:00)
[2017-04-08] MEDS: CALCIUM CARBONATE 500 MG TAB.CHEW PO (08:00)
[2017-04-08 08:02] LABS: POC GLUCOSE 142 mg/dL (70-99)
[2017-04-08] MEDS: FERROUS SULFATE 325 MG TABLET. PO (08:26)
[2017-04-08] MEDS: LUBIPROSTONE 8 MCG CAPSULE PO ×2 (08:26→17:22)
[2017-04-08] MEDS: LACTOBACILLUS RHAMNOSUS GG 1 CAPSULE. PO ×2 (08:26→21:46)
[2017-04-08] MEDS: AMIODARONE HCL 200 MG TABLET. PO ×2 (08:27→09:00)
[2017-04-08 11:55] LABS: POC GLUCOSE 174 mg/dL (70-99)
[2017-04-08] MEDS: NYSTATIN TOPICAL POWDER 15GM BOTTLE. TP ×2 (12:11→21:00)
[2017-04-08 16:58] LABS: POC GLUCOSE 162 mg/dL (70-99)
[2017-04-08] MEDS ORDERED: MAGNESIUM HYDROXIDE 2,400 MG/30 ML ORAL.SUSP. PO (21:00)
[2017-04-08 21:22] LABS: POC GLUCOSE 177 mg/dL (70-99)
[2017-04-08] MEDS: ATORVASTATIN CALCIUM 40 MG TABLET. PO (21:46)
[2017-04-08] MEDS: INSULIN DETEMIR 300 UNITS/3 ML INSULN.PEN. SQ (21:52)
[2017-04-08] MEDS: BISACODYL 10 MG SUPP.RECT. PR (23:36)
[2017-04-09] MEDS: POLYETHYLENE GLYCOL 3350 17 GM PACKET. PO ×3 (00:43→09:00)
[2017-04-09] MEDS: LEVOTHYROXINE 88 MCG TABLET PO (05:49)
[2017-04-09] MEDS: INSULIN ASPART 300 UNITS/3 ML INSULN.PEN SQ ×7 (07:30→21:00)
[2017-04-09 08:00] LABS: POC GLUCOSE 140 mg/dL (70-99)
[2017-04-09] MEDS: CALCIUM CARBONATE 500 MG TAB.CHEW PO (08:00)
[2017-04-09] MEDS: LUBIPROSTONE 8 MCG CAPSULE PO ×2 (08:45→17:00)
[2017-04-09] MEDS ORDERED: IV NORMAL SALINE 1000ML BAG 1,000 ML IV ×2 (08:46)
[2017-04-09] MEDS: FERROUS SULFATE 325 MG TABLET. PO (09:00)
[2017-04-09] MEDS ORDERED: DIALYSIS PATIENT. MC ×2 (09:00)
[2017-04-09] MEDS: AMIODARONE HCL 200 MG TABLET. PO (09:00)
[2017-04-09] MEDS: LACTOBACILLUS RHAMNOSUS GG 1 CAPSULE. PO ×2 (09:00→21:23)
[2017-04-09] MEDS: NYSTATIN TOPICAL POWDER 15GM BOTTLE. TP ×2 (09:00→21:00)
[2017-04-09 11:10] LABS: POC GLUCOSE 136 mg/dL (70-99)
[2017-04-09] MEDS: ATORVASTATIN CALCIUM 40 MG TABLET. PO (21:23)
[2017-04-09] MEDS: INSULIN DETEMIR 300 UNITS/3 ML INSULN.PEN. SQ (21:27)
[2017-04-09 21:33] LABS: POC GLUCOSE 98 mg/dL (70-99)
[2017-04-10] MEDS: LEVOTHYROXINE 88 MCG TABLET PO (06:37)
[2017-04-10] MEDS: INSULIN ASPART 300 UNITS/3 ML INSULN.PEN SQ ×2 (07:30→08:54)
[2017-04-10] MEDS: CALCIUM CARBONATE 500 MG TAB.CHEW PO (08:00)
[2017-04-10 08:02] LABS: POC GLUCOSE 140 mg/dL (70-99)
[2017-04-10] MEDS: LUBIPROSTONE 8 MCG CAPSULE PO (08:42)
[2017-04-10] MEDS: POLYETHYLENE GLYCOL 3350 17 GM PACKET. PO (08:43)
[2017-04-10] MEDS: LACTOBACILLUS RHAMNOSUS GG 1 CAPSULE. PO (08:43)
[2017-04-10] MEDS: FERROUS SULFATE 325 MG TABLET. PO (08:43)
[2017-04-10] MEDS: AMIODARONE HCL 200 MG TABLET. PO (09:00)
== END 2017-04-10 11:40 | disposition home health service (06) | DRG 356 ==
LOC: 6 SOUTH 04-01 13:32 → ER 17:32 → 1 WEST ICU 18:45
PROVIDERS: Internal Medicine
PROC: 30233L1 Transfusion of Nonautologous Fresh Plasma into Peripheral Vein, Percutaneous Approach (ICD-10-PCS; 2017-03-26)
PROC: 30233N1 Transfusion of Nonautologous Red Blood Cells into Peripheral Vein, Percutaneous Approach (ICD-10-PCS; 2017-03-26)
PROC: 30233K1 Transfusion of Nonautologous Frozen Plasma into Peripheral Vein, Percutaneous Approach (ICD-10-PCS; 2017-03-26)
PROC: 04L83DZ Occlusion of Middle Colic Artery with Intraluminal Device, Percutaneous Approach (ICD-10-PCS; principal; 2017-03-27)
PROC: 5A1D70Z Performance of Urinary Filtration, Intermittent, Less than 6 Hours Per Day (ICD-10-PCS; 2017-03-30)
PROC: 5A1D70Z Performance of Urinary Filtration, Intermittent, Less than 6 Hours Per Day (ICD-10-PCS; 2017-04-02)
PROC: 5A1D70Z Performance of Urinary Filtration, Intermittent, Less than 6 Hours Per Day (ICD-10-PCS; 2017-04-04)
PROC: 5A1D70Z Performance of Urinary Filtration, Intermittent, Less than 6 Hours Per Day (ICD-10-PCS; 2017-04-06)
PROC: 5A1D70Z Performance of Urinary Filtration, Intermittent, Less than 6 Hours Per Day (ICD-10-PCS; 2017-04-09)
DX: K92.2 Gastrointestinal hemorrhage, unspecified (principal); R57.1 Hypovolemic shock; G93.41 Metabolic encephalopathy; I12.0 Hypertensive chronic kidney disease with stage 5 chronic kidney disease or end stage renal disease; E11.22 Type 2 diabetes mellitus with diabetic chronic kidney disease; I48.91 Unspecified atrial fibrillation; N18.6 End stage renal disease; D50.0 Iron deficiency anemia secondary to blood loss (chronic); E03.9 Hypothyroidism, unspecified; E11.40 Type 2 diabetes mellitus with diabetic neuropathy, unspecified; E11.649 Type 2 diabetes mellitus with hypoglycemia without coma; E11.65 Type 2 diabetes mellitus with hyperglycemia; E21.3 Hyperparathyroidism, unspecified; E66.01 Morbid (severe) obesity due to excess calories; E78.00 Pure hypercholesterolemia, unspecified; E78.5 Hyperlipidemia, unspecified; F28 Other psychotic disorder not due to a substance or known physiological condition; K21.9 Gastro-esophageal reflux disease without esophagitis; K59.00 Constipation, unspecified; K80.20 Calculus of gallbladder without cholecystitis without obstruction; Z96.1 Presence of intraocular lens; M19.90 Unspecified osteoarthritis, unspecified site; Z79.4 Long term (current) use of insulin; Z82.49 Family history of ischemic heart disease and other diseases of the circulatory system; Z83.3 Family history of diabetes mellitus; Z86.73 Personal history of transient ischemic attack (TIA), and cerebral infarction without residual deficits; Z99.2 Dependence on renal dialysis; Z98.51 Tubal ligation status
CPT/HCPCS: 36415; 36600; 37244; 70551; 74018; 75726; 76700; 76937; 80047; 80048; 80053; 82274; 82805; 82962; 83605; 83735; 84100; 85007; 85025; 85027; 85610; 85730; 86706; 86850; 86900; 86901; 86920; 86927; 87040; 87340; 87641; 92610-GN; 96365; 97110-GP; 97163-GP; 97166-GO; 97530-GO; 97530-GP; 97535-GO; 99291-25; 99292; C1713; C1760; C1887; C1892; C1894; C9113; G0269; J0881; J1450; J1644; J1756; J1815; J2270; J2405; J2543; J3010; J7030; J7042; J7050; P9016; P9017; Q9967

== ENCOUNTER → 2017-05-10 | Day surgery (SDC) | payer OTHER ==
[~2017-05-10] MED LIST changes: -AMIO200T2 PO; -AMIT50TA PO; -ASPI-612 PO; -ATOR40TA59 PO; -CALC200T3 PO; -CHOL2000 PO; -CINA30TA2 PO; -FERR-26 PO; -FERR-36 PO; -FOLI0.8T3 PO; -HYDR-2758 PO; -HYDR-971 PO; -INSU100I17 SQ; -INSU100I18 SQ; -INSU100I27 SQ; +IV RINGERS,LACTATED 1000ML 1,000 ML IV; -LANT1000 PO; -LEVO75TA PO; -LEVO75TA5 PO; -LUBI8CAP4 PO; -METAMUCIL425 GM PO; -MUPI1OIN NS; +PROPOFOL 40 ML IV; -SENN-6 PO; -SENN1TAB19 PO; -SEVE800T9 PO; -TRAM50TA PO; -WARF10TA45 PO
[2017-05-10] MEDS: IV NORMAL SALINE 1000ML BAG 1,000 ML IV (10:25)
[2017-05-10 10:52] LABS: POC GLUCOSE 129 mg/dL (70-99)
== END | disposition home or self-care (01) ==
LOC: ENDOS 10:18
DX: K57.30 Diverticulosis of large intestine without perforation or abscess without bleeding (principal); K64.0 First degree hemorrhoids; K63.3 Ulcer of intestine; K56.699 Other intestinal obstruction unspecified as to partial versus complete obstruction; K21.0 Gastro-esophageal reflux disease with esophagitis; K29.50 Unspecified chronic gastritis without bleeding; E11.22 Type 2 diabetes mellitus with diabetic chronic kidney disease; I12.0 Hypertensive chronic kidney disease with stage 5 chronic kidney disease or end stage renal disease; N18.6 End stage renal disease; I48.91 Unspecified atrial fibrillation; E03.9 Hypothyroidism, unspecified; E78.5 Hyperlipidemia, unspecified; E11.40 Type 2 diabetes mellitus with diabetic neuropathy, unspecified; Z79.4 Long term (current) use of insulin; Z99.2 Dependence on renal dialysis; Z79.82 Long term (current) use of aspirin; Z98.890 Other specified postprocedural states; Z98.51 Tubal ligation status; Z90.49 Acquired absence of other specified parts of digestive tract; Z79.899 Other long term (current) drug therapy
CPT/HCPCS: 43239; 82962; 88305; 88313; 88341; 88342; J2704

== ENCOUNTER 2017-08-30 07:48 | Inpatient (IN) | payer OTHER ==
[2017-08-30] MEDS: IOHEXOL 240 MG/ML 50ML VIAL. PO (08:15)
[2017-08-30] MEDS ORDERED: CONTRAST GIVEN. MC (08:15)
[2017-08-30] MEDS: IOHEXOL 300 MG/ML 100ML VIAL. IV (08:15)
[2017-08-30] MEDS: ONDANSETRON PF 4 MG/2 ML VIAL. IV (08:16)
[2017-08-30 08:22] LABS: ADD MAN DIFF? NO
[2017-08-30 08:24] LABS: BASO % 1 % (0-3); EOS # 0.1 x10^3/uL (0.0-0.7); EOS % 1 % (0-3); HEMATOCRIT 36.2 % (36.0-47.0); HEMOGLOBIN 11.8 g/dL (12.0-15.5); LYMPH # 0.5 x10^3/uL (1.0-4.8); LYMPH % 10 % (24-48); MEAN CORPUSCULAR HEMOGLOBIN 30 pg (25-35); MEAN CORPUSCULAR HGB CONC 33 g/dL (31-37); MEAN CORPUSCULAR VOLUME 93 fL (79-100); MONO # 0.7 x10^3/uL (0.0-1.1); MONO % 13 % (0-9); NEUT % 75 % (31-73); PLATELET COUNT 191 x10^3/uL (140-400); RED BLOOD COUNT 3.91 x10^6/uL (3.50-5.40); RED CELL DISTRIBUTION WIDTH 17.3 % (11.5-14.5); WHITE BLOOD COUNT 5.3 x10^3/uL (4.0-11.0)
[2017-08-30 08:27] LABS: ANION GAP 11 (6-14); BLOOD UREA NITROGEN 31 mg/dL (7-20); BUN/CREATININE RATIO 5 (6-20); CALCIUM 9.2 mg/dL (8.5-10.1); CARBON DIOXIDE 29 mmol/L (21-32); CHLORIDE 94 mmol/L (98-107); CREATININE 5.8 mg/dL (0.6-1.0); GFR 8.9; GLUCOSE 240 mg/dL (70-99); POTASSIUM 3.7 mmol/L (3.5-5.1); SODIUM 134 mmol/L (136-145)
[2017-08-30 08:32] LABS: ALBUMIN 3.3 g/dL (3.4-5.0); ALBUMIN/GLOBULIN RATIO 0.8 (1.0-1.7); ALK PHOS 124 U/L (46-116); ALT (SGPT) 22 U/L (14-59); AST (SGOT) 17 U/L (15-37); TOTAL BILIRUBIN 0.5 mg/dL (0.2-1.0); TOTAL PROTEIN 7.5 g/dL (6.4-8.2)
[2017-08-30] MEDS: MORPHINE SULFATE 4 MG/ML DISP.SYRIN. IV (11:47)
[2017-08-30] MEDS ORDERED: ONDANSETRON PF 4 MG/2 ML VIAL. IV ×2 (12:15→13:45)
[2017-08-30] MEDS ORDERED: hydrALAZINE 20 MG/ML VIAL. IVP (13:45)
[2017-08-30] MEDS ORDERED: DOCUSATE SODIUM 100 MG CAPSULE. PO (13:45)
[2017-08-30] MEDS ORDERED: ACETAMINOPHEN 325 MG TABLET. PO (13:45)
[2017-08-30] MEDS ORDERED: MORPHINE SULFATE 2 MG/ML DISP.SYRIN. IV (13:45)
[2017-08-30] MEDS: IV NORMAL SALINE 1000ML BAG 1,000 ML IV (14:00)
[2017-08-30] MEDS: HEPARIN PF for SUB-Q USE 5,000 UNIT/0.5 ML VIAL. SQ ×2 (15:00→22:00)
[2017-08-30] MEDS: LEVOTHYROXINE SODIUM 50 MCG in IV NORMAL SALINE 50ML 5 ML IVP (15:00)
[2017-08-30] MEDS: PANTOPRAZOLE IV PUSH 40 MG VIAL. IVP (15:00)
[2017-08-30] MEDS: DIGOXIN IV 500 MCG/2 ML AMPUL. IV (15:00)
[2017-08-30 16:58] LABS: POC GLUCOSE 161 mg/dL (70-99)
[2017-08-30] MEDS: INSULIN LISPRO 300 UNITS/3 ML INSULN.PEN. SQ (17:00)
[2017-08-31 02:02] LABS: POC GLUCOSE 136 mg/dL (70-99)
[2017-08-31] MEDS: IV NORMAL SALINE 1000ML BAG 1,000 ML IV ×2 (03:20→14:20)
[2017-08-31] MEDS: HEPARIN PF for SUB-Q USE 5,000 UNIT/0.5 ML VIAL. SQ ×3 (06:00→13:53)
[2017-08-31] MEDS: PANTOPRAZOLE IV PUSH 40 MG VIAL. IVP (07:30)
[2017-08-31] MEDS: INSULIN LISPRO 300 UNITS/3 ML INSULN.PEN. SQ ×3 (08:00→17:00)
[2017-08-31] MEDS: DIGOXIN IV 500 MCG/2 ML AMPUL. IV (08:03)
[2017-08-31 08:18] LABS: ADD MAN DIFF? NO
[2017-08-31 08:25] LABS: BASO % 1 % (0-3); EOS # 0.1 x10^3/uL (0.0-0.7); EOS % 3 % (0-3); HEMATOCRIT 34.7 % (36.0-47.0); HEMOGLOBIN 11.3 g/dL (12.0-15.5); LYMPH # 0.5 x10^3/uL (1.0-4.8); LYMPH % 13 % (24-48); MEAN CORPUSCULAR HEMOGLOBIN 30 pg (25-35); MEAN CORPUSCULAR HGB CONC 33 g/dL (31-37); MEAN CORPUSCULAR VOLUME 93 fL (79-100); MONO # 0.5 x10^3/uL (0.0-1.1); MONO % 12 % (0-9); NEUT # 2.9 x10^3uL (1.8-7.7); NEUT % 72 % (31-73); PLATELET COUNT 200 x10^3/uL (140-400); RED BLOOD COUNT 3.74 x10^6/uL (3.50-5.40); RED CELL DISTRIBUTION WIDTH 17.1 % (11.5-14.5)
[2017-08-31 08:39] LABS: ANION GAP 9 (6-14); BLOOD UREA NITROGEN 40 mg/dL (7-20); CALCIUM 9.1 mg/dL (8.5-10.1); CARBON DIOXIDE 32 mmol/L (21-32); CHLORIDE 95 mmol/L (98-107); CREATININE 7.3 mg/dL (0.6-1.0); GFR 6.8; GLUCOSE 156 mg/dL (70-99); POTASSIUM 3.7 mmol/L (3.5-5.1); SODIUM 136 mmol/L (136-145)
[2017-08-31] MEDS: LEVOTHYROXINE SODIUM 50 MCG in IV NORMAL SALINE 50ML 5 ML IVP (09:00)
[2017-08-31] MEDS ORDERED: IV NORMAL SALINE 1000ML BAG 1,000 ML IV ×2 (09:58)
[2017-08-31] MEDS ORDERED: DIALYSIS PATIENT. MC (10:00)
[2017-08-31] MEDS ORDERED: diphenhydrAMINE 50 MG/ML VIAL IV ×3 (10:00→18:00)
[2017-08-31] MEDS ORDERED: ACETAMINOPHEN 500 MG TABLET PO (10:00)
[2017-08-31 11:06] LABS: POC GLUCOSE 131 mg/dL (70-99)
[2017-08-31] MEDS ORDERED: IOHEXOL 300 MG/ML 100ML VIAL. (11:14)
[2017-08-31] MEDS ORDERED: GLUCAGON,HUMAN RECOMBINANT 1 MG/ML VIAL. (11:14)
[2017-08-31] MEDS ORDERED: ONDANSETRON PF 4 MG/2 ML VIAL. (13:08)
[2017-08-31] MEDS ORDERED: SEVOFLURANE > 120 MINUTES. IH (13:08)
[2017-08-31] MEDS ORDERED: DEXAMETHASONE SOD PHOS 20 MG/5 ML VIAL. (13:08)
[2017-08-31] MEDS ORDERED: LIDOCAINE 2% PF Vial for OR 5 ML VIAL. (13:08)
[2017-08-31] MEDS ORDERED: PROPOFOL 20 ML IV (13:08)
[2017-08-31] MEDS ORDERED: fentaNYL PF VIAL 250 MCG/5 ML VIAL (13:08)
[2017-08-31] MEDS ORDERED: ROCURONIUM 100 MG/10 ML VIAL. (13:08)
[2017-08-31] MEDS: IV RINGERS,LACTATED 1000ML 1,000 ML IV (14:03)
[2017-08-31] MEDS ORDERED: PROCHLORPERAZINE 10 MG/2 ML VIAL. IV (14:15)
[2017-08-31] MEDS ORDERED: ONDANSETRON PF 4 MG/2 ML VIAL. IV (14:15)
[2017-08-31] MEDS ORDERED: LIDOCAINE 1% PF 2 ML VIAL. ID (14:15)
[2017-08-31] MEDS ORDERED: MORPHINE SULFATE 2 MG/ML DISP.SYRIN. IV (14:15)
[2017-08-31] MEDS ORDERED: fentaNYL PF VIAL 100 MCG/2 ML VIAL IV ×2 (14:15)
[2017-08-31] MEDS ORDERED: PHENYLEPHRINE in 0.9% NACL PF 1 MG/10 ML SYRINGE. IV (14:27)
[2017-08-31] MEDS ORDERED: HEPARIN for IV BOLUS 10,000 UNIT/10 ML VIAL. (14:44)
[2017-08-31] MEDS ORDERED: ePHEDrine PF IN SALINE 50 MG/5 ML DISP.SYRIN IV (14:47)
[2017-08-31] MEDS: BUPIVACAINE-EPI 0.5%-1:200000 50 ML VIAL. (15:40)
[2017-08-31] MEDS: SURGICEL HEMOSTAT 4X8 EACH. (15:42)
[2017-08-31] MEDS ORDERED: LIDOCAINE 2% TOPICAL JELLY 5GM TUBE. TP (15:49)
[2017-08-31] MEDS ORDERED: DESFLURANE > 120 MINUTES IH ×2 (16:49→18:05)
[2017-08-31] MEDS ORDERED: GLYCOPYRROLATE 1 MG/5 ML VIAL. (16:50)
[2017-08-31] MEDS ORDERED: NEOSTIGMINE METHYLSULFATE 5 MG/5 ML SYRINGE. (16:50)
[2017-08-31] MEDS ORDERED: BENZOCAINE/MENTHOL LOZENGE. PO (18:00)
[2017-08-31] MEDS ORDERED: 0.9 % SODIUM CHLORIDE 10 ML DISP.SYRIN. IV (18:00)
[2017-08-31] MEDS: IV 1/2 NORMAL SALINE 1,000 ML IV (18:00)
[2017-08-31 18:27] LABS: POC GLUCOSE 239 mg/dL (70-99)
[2017-08-31] MEDS ORDERED: fentaNYL PF VIAL 100 MCG/2 ML VIAL (18:36)
[2017-08-31] MEDS: fentaNYL PF VIAL 100 MCG/2 ML VIAL IV ×3 (18:40→19:37)
[2017-08-31] MEDS: INSULIN ASPART 100 UNIT/ML 10ML VIAL. SQ ×2 (18:53→19:40)
[2017-08-31] MEDS: MORPHINE SULFATE/PF 30 ML IV (20:30)
[2017-08-31 20:37] LABS: POC GLUCOSE 260 mg/dL (70-99)
[2017-08-31 20:37] LABS: POC GLUCOSE 223 mg/dL (70-99)
[2017-08-31] MEDS: ONDANSETRON PF 4 MG/2 ML VIAL. IV (21:13)
[2017-08-31 21:26] LABS: POC GLUCOSE 169 mg/dL (70-99)
[2017-08-31 22:13] LABS: MRSA BY PCR Positive (Negative)
[2017-09-01] MEDS ORDERED: ENOXAPARIN 40 MG/0.4 ML SYRINGE. SQ (06:00)
[2017-09-01] MEDS: IV NORMAL SALINE 1000ML BAG 1,000 ML IV ×2 (06:00→19:20)
[2017-09-01] MEDS: PHENOL ORAL SPRAY 177ML BOTTLE. PO (06:33)
[2017-09-01] MEDS: INSULIN LISPRO 300 UNITS/3 ML INSULN.PEN. SQ ×3 (08:00→17:00)
[2017-09-01 08:10] LABS: POC GLUCOSE 117 mg/dL (70-99)
[2017-09-01] MEDS: PANTOPRAZOLE IV PUSH 40 MG VIAL. IVP (10:08)
[2017-09-01] MEDS: LEVOTHYROXINE SODIUM 50 MCG in IV NORMAL SALINE 50ML 5 ML IVP (10:09)
[2017-09-01] MEDS: DIGOXIN IV 500 MCG/2 ML AMPUL. IV (10:18)
[2017-09-01] MEDS: HEPARIN PF for SUB-Q USE 5,000 UNIT/0.5 ML VIAL. SQ ×3 (10:41→21:49)
[2017-09-01 12:12] LABS: POC GLUCOSE 119 mg/dL (70-99)
[2017-09-01] MEDS: IV 1/2 NORMAL SALINE 1,000 ML IV (12:37)
[2017-09-01 21:12] LABS: POC GLUCOSE 227 mg/dL (70-99)
[2017-09-02] MEDS: MORPHINE SULFATE/PF 30 ML IV (06:15)
[2017-09-02] MEDS: HEPARIN PF for SUB-Q USE 5,000 UNIT/0.5 ML VIAL. SQ ×3 (06:17→21:02)
[2017-09-02] MEDS: PANTOPRAZOLE IV PUSH 40 MG VIAL. IVP ×2 (07:30→08:17)
[2017-09-02] MEDS: INSULIN LISPRO 300 UNITS/3 ML INSULN.PEN. SQ ×4 (07:59→18:11)
[2017-09-02 08:09] LABS: POC GLUCOSE 224 mg/dL (70-99)
[2017-09-02] MEDS: LEVOTHYROXINE SODIUM 50 MCG in IV NORMAL SALINE 50ML 5 ML IVP (08:17)
[2017-09-02] MEDS: DIGOXIN IV 500 MCG/2 ML AMPUL. IV (08:18)
[2017-09-02] MEDS: IV NORMAL SALINE 1000ML BAG 1,000 ML IV ×2 (08:40→21:02)
[2017-09-02 09:31] LABS: HEMATOCRIT 31.4 % (36.0-47.0); HEMOGLOBIN 9.9 g/dL (12.0-15.5); MEAN CORPUSCULAR HEMOGLOBIN 30 pg (25-35); MEAN CORPUSCULAR HGB CONC 31 g/dL (31-37); MEAN CORPUSCULAR VOLUME 95 fL (79-100); PLATELET COUNT 148 x10^3/uL (140-400); RED BLOOD COUNT 3.29 x10^6/uL (3.50-5.40); RED CELL DISTRIBUTION WIDTH 17.9 % (11.5-14.5); WHITE BLOOD COUNT 9.3 x10^3/uL (4.0-11.0)
[2017-09-02 09:50] LABS: ALBUMIN 2.4 g/dL (3.4-5.0); TOTAL PROTEIN 6.8 g/dL (6.4-8.2)
[2017-09-02 09:51] LABS: ALBUMIN/GLOBULIN RATIO 0.5 (1.0-1.7); ALK PHOS 120 U/L (46-116); ALT (SGPT) 30 U/L (14-59); ANION GAP 13 (6-14); AST (SGOT) 37 U/L (15-37); BLOOD UREA NITROGEN 38 mg/dL (7-20); BUN/CREATININE RATIO 6 (6-20); CARBON DIOXIDE 24 mmol/L (21-32); CHLORIDE 98 mmol/L (98-107); CREATININE 6.8 mg/dL (0.6-1.0); GFR 7.4; GLUCOSE 256 mg/dL (70-99); POTASSIUM 4.9 mmol/L (3.5-5.1); SODIUM 135 mmol/L (136-145); TOTAL BILIRUBIN 0.5 mg/dL (0.2-1.0)
[2017-09-02] MEDS: IV 1/2 NORMAL SALINE 1,000 ML IV (10:10)
[2017-09-02 11:54] LABS: POC GLUCOSE 221 mg/dL (70-99)
[2017-09-02] MEDS: CALCIUM CARBONATE 500 MG TAB.CHEW PO (15:30)
[2017-09-02 16:32] LABS: POC GLUCOSE 219 mg/dL (70-99)
[2017-09-02] MEDS: LUBIPROSTONE 8 MCG CAPSULE PO (17:56)
[2017-09-02] MEDS: FOLIC/VIT B COMP W-C (RENAL) TABLET. PO (17:57)
[2017-09-02] MEDS: AMIODARONE HCL 200 MG TABLET. PO (17:57)
[2017-09-02] MEDS: ASPIRIN ENTERIC COATED 81 MG TABLET.DR. PO (17:57)
[2017-09-02 20:53] LABS: POC GLUCOSE 137 mg/dL (70-99)
[2017-09-02] MEDS: SENNOSIDES/DOCUSATE 8.6/50MG TABLET. PO (21:00)
[2017-09-02] MEDS: NYSTATIN TOPICAL POWDER 15GM BOTTLE. TP (21:00)
[2017-09-02] MEDS: INSULIN GLARGINE 300 UNITS/3 ML INSULN.PEN. SQ (21:00)
[2017-09-02] MEDS: ATORVASTATIN CALCIUM 40 MG TABLET. PO (21:00)
[2017-09-03] MEDS: IV 1/2 NORMAL SALINE 1,000 ML IV (04:58)
[2017-09-03] MEDS: LEVOTHYROXINE 88 MCG TABLET PO (06:03)
[2017-09-03] MEDS: HEPARIN PF for SUB-Q USE 5,000 UNIT/0.5 ML VIAL. SQ ×3 (06:06→22:04)
[2017-09-03] MEDS: INSULIN LISPRO 300 UNITS/3 ML INSULN.PEN. SQ ×6 (08:00→16:59)
[2017-09-03 08:34] LABS: POC GLUCOSE 140 mg/dL (70-99)
[2017-09-03] MEDS ORDERED: oxyCODONE/APAP 10/325 1 TAB TABLET PO (09:00)
[2017-09-03] MEDS: SENNOSIDES/DOCUSATE 8.6/50MG TABLET. PO ×2 (09:00→21:58)
[2017-09-03] MEDS ORDERED: oxyCODONE/APAP 5/325 1 TAB TABLET PO (09:00)
[2017-09-03] MEDS: NYSTATIN TOPICAL POWDER 15GM BOTTLE. TP ×2 (09:00→21:00)
[2017-09-03] MEDS ORDERED: IV NORMAL SALINE 1000ML BAG 1,000 ML IV (09:08)
[2017-09-03] MEDS ORDERED: DIALYSIS PATIENT. MC ×2 (09:15)
[2017-09-03] MEDS: IV NORMAL SALINE 1000ML BAG 1,000 ML IV (11:20)
[2017-09-03] MEDS: POLYETHYLENE GLYCOL 3350 17 GM PACKET. PO (13:21)
[2017-09-03] MEDS: FOLIC/VIT B COMP W-C (RENAL) TABLET. PO (13:22)
[2017-09-03] MEDS: LUBIPROSTONE 8 MCG CAPSULE PO (13:22)
[2017-09-03] MEDS: PANTOPRAZOLE 40 MG TABLET.DR. PO (13:23)
[2017-09-03] MEDS: DIGOXIN 125 MCG TABLET. PO (13:24)
[2017-09-03] MEDS: CALCIUM CARBONATE 500 MG TAB.CHEW PO (13:24)
[2017-09-03] MEDS: AMIODARONE HCL 200 MG TABLET. PO (13:24)
[2017-09-03] MEDS: ASPIRIN ENTERIC COATED 81 MG TABLET.DR. PO (13:25)
[2017-09-03] MEDS: traMADol 50 MG TABLET PO (13:27)
[2017-09-03 13:31] LABS: HEMATOCRIT 27.3 % (36.0-47.0); MEAN CORPUSCULAR HEMOGLOBIN 31 pg (25-35); MEAN CORPUSCULAR HGB CONC 33 g/dL (31-37); MEAN CORPUSCULAR VOLUME 92 fL (79-100); PLATELET COUNT 140 x10^3/uL (140-400); RED BLOOD COUNT 2.96 x10^6/uL (3.50-5.40); RED CELL DISTRIBUTION WIDTH 17.1 % (11.5-14.5)
[2017-09-03 13:35] LABS: ANION GAP 8 (6-14); BLOOD UREA NITROGEN 15 mg/dL (7-20); CALCIUM 8.7 mg/dL (8.5-10.1); CARBON DIOXIDE 29 mmol/L (21-32); CHLORIDE 101 mmol/L (98-107); GFR 19.1; GLUCOSE 125 mg/dL (70-99); SODIUM 138 mmol/L (136-145)
[2017-09-03 16:13] LABS: POC GLUCOSE 112 mg/dL (70-99)
[2017-09-03 16:50] LABS: POC GLUCOSE 130 mg/dL (70-99)
[2017-09-03] MEDS: INSULIN GLARGINE 300 UNITS/3 ML INSULN.PEN. SQ (21:00)
[2017-09-03] MEDS: ATORVASTATIN CALCIUM 40 MG TABLET. PO (21:58)
[2017-09-04] MEDS: LEVOTHYROXINE 88 MCG TABLET PO (05:21)
[2017-09-04] MEDS: PANTOPRAZOLE 40 MG TABLET.DR. PO (05:21)
[2017-09-04] MEDS: HEPARIN PF for SUB-Q USE 5,000 UNIT/0.5 ML VIAL. SQ ×3 (05:26→21:31)
[2017-09-04] MEDS: LUBIPROSTONE 8 MCG CAPSULE PO (08:15)
[2017-09-04] MEDS: CALCIUM CARBONATE 500 MG TAB.CHEW PO (08:15)
[2017-09-04] MEDS: AMIODARONE HCL 200 MG TABLET. PO (08:16)
[2017-09-04] MEDS: SENNOSIDES/DOCUSATE 8.6/50MG TABLET. PO ×2 (08:16→21:28)
[2017-09-04] MEDS: ASPIRIN ENTERIC COATED 81 MG TABLET.DR. PO (08:16)
[2017-09-04 08:17] LABS: POC GLUCOSE 226 mg/dL (70-99)
[2017-09-04] MEDS: POLYETHYLENE GLYCOL 3350 17 GM PACKET. PO ×2 (08:17→21:28)
[2017-09-04] MEDS: DIGOXIN 125 MCG TABLET. PO (08:17)
[2017-09-04] MEDS: NYSTATIN TOPICAL POWDER 15GM BOTTLE. TP ×2 (08:18→21:32)
[2017-09-04] MEDS: FOLIC/VIT B COMP W-C (RENAL) TABLET. PO (08:24)
[2017-09-04] MEDS: INSULIN LISPRO 300 UNITS/3 ML INSULN.PEN. SQ ×6 (09:41→17:00)
[2017-09-04] MEDS ORDERED: BISACODYL 5 MG TABLET.DR. PO (10:30)
[2017-09-04 11:21] LABS: POC GLUCOSE 210 mg/dL (70-99)
[2017-09-04 16:48] LABS: THYROID STIM HORMONE (TSH) 0.946 uIU/mL (0.358-3.74)
[2017-09-04 16:48] LABS: FREE T4 1.46 ng/dL (0.76-1.46)
[2017-09-04 17:16] LABS: POC GLUCOSE 73 mg/dL (70-99)
[2017-09-04 17:52] LABS: POC GLUCOSE 62 mg/dL (70-99)
[2017-09-04] MEDS: DEXTROSE 50% 25 GM / 50ML DISP.SYRIN. IV (18:02)
[2017-09-04 20:51] LABS: POC GLUCOSE 117 mg/dL (70-99)
[2017-09-04] MEDS: INSULIN GLARGINE 300 UNITS/3 ML INSULN.PEN. SQ (21:00)
[2017-09-04] MEDS: ATORVASTATIN CALCIUM 40 MG TABLET. PO (21:28)
[2017-09-05] MEDS: PANTOPRAZOLE 40 MG TABLET.DR. PO (05:56)
[2017-09-05] MEDS: LEVOTHYROXINE 88 MCG TABLET PO (05:56)
[2017-09-05] MEDS: HEPARIN PF for SUB-Q USE 5,000 UNIT/0.5 ML VIAL. SQ ×2 (06:00→13:58)
[2017-09-05 07:53] LABS: POC GLUCOSE 154 mg/dL (70-99)
[2017-09-05] MEDS: ASPIRIN ENTERIC COATED 81 MG TABLET.DR. PO (08:36)
[2017-09-05] MEDS: FOLIC/VIT B COMP W-C (RENAL) TABLET. PO (08:36)
[2017-09-05] MEDS: SENNOSIDES/DOCUSATE 8.6/50MG TABLET. PO (08:37)
[2017-09-05] MEDS: LUBIPROSTONE 8 MCG CAPSULE PO (08:37)
[2017-09-05] MEDS: CALCIUM CARBONATE 500 MG TAB.CHEW PO (08:38)
[2017-09-05] MEDS: AMIODARONE HCL 200 MG TABLET. PO (08:38)
[2017-09-05] MEDS: DIGOXIN 125 MCG TABLET. PO (08:39)
[2017-09-05] MEDS: POLYETHYLENE GLYCOL 3350 17 GM PACKET. PO (08:39)
[2017-09-05] MEDS: INSULIN LISPRO 300 UNITS/3 ML INSULN.PEN. SQ ×6 (08:46→17:00)
[2017-09-05] MEDS: NYSTATIN TOPICAL POWDER 15GM BOTTLE. TP (09:00)
[2017-09-05 12:17] LABS: POC GLUCOSE 126 mg/dL (70-99)
[2017-09-05] MEDS ORDERED: IV NORMAL SALINE 1000ML BAG 1,000 ML IV ×2 (13:59)
[2017-09-05] MEDS ORDERED: ALBUMIN HUMAN 25% 200 ML IV (14:00)
[2017-09-05] MEDS ORDERED: DIALYSIS PATIENT. MC ×2 (14:00)
[2017-09-05 14:02] LABS: ADD MAN DIFF? YES; BASO % 0 % (0-3); EOS # 0.2 x10^3/uL (0.0-0.7); EOS % 2 % (0-3); HEMATOCRIT 26.2 % (36.0-47.0); HEMOGLOBIN 8.4 g/dL (12.0-15.5); LYMPH # 0.3 x10^3/uL (1.0-4.8); LYMPH % 3 % (24-48); MEAN CORPUSCULAR HEMOGLOBIN 30 pg (25-35); MEAN CORPUSCULAR HGB CONC 32 g/dL (31-37); MEAN CORPUSCULAR VOLUME 92 fL (79-100); MONO # 1.1 x10^3/uL (0.0-1.1); MONO % 9 % (0-9); NEUT # 10.8 x10^3uL (1.8-7.7); NEUT % 86 % (31-73); PLATELET COUNT 209 x10^3/uL (140-400); RED BLOOD COUNT 2.83 x10^6/uL (3.50-5.40); RED CELL DISTRIBUTION WIDTH 16.6 % (11.5-14.5); WHITE BLOOD COUNT 12.5 x10^3/uL (4.0-11.0)
[2017-09-05 14:16] LABS: ALBUMIN 1.7 g/dL (3.4-5.0); ALBUMIN/GLOBULIN RATIO 0.3 (1.0-1.7); ALK PHOS 149 U/L (46-116); ANION GAP 10 (6-14); AST (SGOT) 31 U/L (15-37); BLOOD UREA NITROGEN 45 mg/dL (7-20); BUN/CREATININE RATIO 7 (6-20); CALCIUM 9.6 mg/dL (8.5-10.1); CARBON DIOXIDE 28 mmol/L (21-32); CHLORIDE 95 mmol/L (98-107); CREATININE 6.3 mg/dL (0.6-1.0); GFR 8.1; GLUCOSE 143 mg/dL (70-99); MAGNESIUM 2.1 mg/dL (1.8-2.4); POTASSIUM 4.6 mmol/L (3.5-5.1); SODIUM 133 mmol/L (136-145); TOTAL BILIRUBIN 0.6 mg/dL (0.2-1.0); TOTAL PROTEIN 6.7 g/dL (6.4-8.2)
[2017-09-05 14:31] LABS: ALT (SGPT) 9 U/L (14-59)
[2017-09-05 14:37] LABS: % BANDS 10 % (0-9); % BASOS 1 % (0-3); % EOS 2 % (0-5); % LYMPHS 4 % (24-48); % MONOS 9 % (0-10); % SEGS 74 % (35-66); PLT ESTIMATE ADEQUATE (ADEQUATE)
[2017-09-05 14:38] LABS: TOXIC GRANULATION SLIGHT; TOXIC VACUOLATION SLIGHT
[2017-09-05] MEDS ORDERED: HEPARIN for IV BOLUS 10,000 UNIT/10 ML VIAL. IV (14:45)
== END 2017-09-05 20:30 | DRG 329 ==
LOC: ER 07:48 → 4 NORTH 12:03
PROC: 0DTF0ZZ Resection of Right Large Intestine, Open Approach (ICD-10-PCS; principal; 2017-08-31 12:45)
PROC: 0FT44ZZ Resection of Gallbladder, Percutaneous Endoscopic Approach (ICD-10-PCS; 2017-08-31 12:45)
PROC: 5A1D70Z Performance of Urinary Filtration, Intermittent, Less than 6 Hours Per Day (ICD-10-PCS; 2017-08-31 14:15)
DX: K56.699 Other intestinal obstruction unspecified as to partial versus complete obstruction (principal); N18.6 End stage renal disease; E44.1 Mild protein-calorie malnutrition; I50.32 Chronic diastolic (congestive) heart failure; Z68.41 Body mass index [BMI] 40.0-44.9, adult; I13.2 Hypertensive heart and chronic kidney disease with heart failure and with stage 5 chronic kidney disease, or end stage renal disease; K55.1 Chronic vascular disorders of intestine; E03.9 Hypothyroidism, unspecified; E11.22 Type 2 diabetes mellitus with diabetic chronic kidney disease; E11.40 Type 2 diabetes mellitus with diabetic neuropathy, unspecified; E66.01 Morbid (severe) obesity due to excess calories; E78.00 Pure hypercholesterolemia, unspecified; E78.5 Hyperlipidemia, unspecified; I48.91 Unspecified atrial fibrillation; K21.9 Gastro-esophageal reflux disease without esophagitis; K57.90 Diverticulosis of intestine, part unspecified, without perforation or abscess without bleeding; K58.1 Irritable bowel syndrome with constipation; D53.9 Nutritional anemia, unspecified; K76.0 Fatty (change of) liver, not elsewhere classified; K80.20 Calculus of gallbladder without cholecystitis without obstruction; E21.3 Hyperparathyroidism, unspecified; M19.90 Unspecified osteoarthritis, unspecified site; Z87.01 Personal history of pneumonia (recurrent); Z53.31 Laparoscopic surgical procedure converted to open procedure; Z79.4 Long term (current) use of insulin; Z79.82 Long term (current) use of aspirin; Z82.49 Family history of ischemic heart disease and other diseases of the circulatory system; Z83.3 Family history of diabetes mellitus; Z99.2 Dependence on renal dialysis; Z91.041 Radiographic dye allergy status; Z98.51 Tubal ligation status; Z98.49 Cataract extraction status, unspecified eye
CPT/HCPCS: 36415; 74018; 74176; 80048; 80053; 82962; 83735; 84439; 84443; 84481; 85007; 85025; 85027; 87641; 88304; 88307; 96374; 96375; 97163-GP; 97166-GO; 97530-GP; 99285; 99285-25; A7015; C9113; J0690; J1100; J1160; J1610; J1644; J1815; J2001; J2270; J2370; J2405; J2704; J2710; J3010; J3490; J7030; J7042; Q9966; Q9967